=== PATIENT | male | born 1985 | race Asian ===

== ENCOUNTER 2024-06-07 14:43 | Emergency (ER) | payer OTHER, SELFPAY ==
[2024-06-07 14:56] VITALS: BP 212/122; PULSE 97; RESP 18; TEMP 36.1; O2SAT 100; BMI 34.5
--- NOTE | 2024-06-07 14:59 | ED.GENADULT ---
HPI - General Adult General Chief complaint: General Medical Stated complaint: High bp sent in from Urgent Care Time Seen by Provider: 06/07/24 15:40 Source: patient Mode of arrival: ambulatory Limitations: no limitations History of Present Illness ED Provider: RONALD CHAETHAM PA-C HPI narrative: 38 year old male with pmhx significant for HTN presents to the ED today from Urgent Care for evaluation of high blood pressure. He was evaluated by his dentist this morning for a few days of left lower dental pain. He had an exam with xrays - dentist noted concern for broken tooth. He was advised to return to the office in a few weeks for repeat imaging. He states he was placed on amoxicillin however has not picked this up from the pharmacy yet. He has been taking motrin/ tylenol at home with little relief of dental pain. States his dentist did not prescribe him anything stronger. Denies fever, chills, N/V, odynophagia, dysphagia. He presented to Urgent Care after his dental visit this morning requesting pain medication. His BP was noted to be elevated and he was advised to come to the ED for further evaluation. Reports history of HTN. He was previously treated with amlodipine however self discontinued his medication about 1 year ago as he relocated and was unable to establish care with a new provider. Denies headache, dizziness, vision changes, chest pain, palpitations, SOB. Related Data Previous Rx's ?Medication ?Instructions ?Recorded hydrochlorothiazide 25 mg tablet 25 mg PO DAILY 30 days #30 tabs 06/07/24 tramadol 50 mg tablet 50 mg PO Q8H PRN pain (scale score 06/07/24 4-6) #9 tabs Allergies Allergy/AdvReac Type Severity Reaction Status Date / Time No Known Allergies Allergy Verified 06/07/24 15:03 Review of Systems Review of Systems: Yes all other systems are reviewed and are negative [facility] Past Medical History Attestation statement: The following information was validated with the patient. Source: old records reviewed and nursing notes reviewed Social History Social History Smoked in Last 30 Days: No Use of substances other than those prescribed or required for medical reasons: No Advance Directives: No Advance Directives Information Provided: No Do you have a plan to hurt others: No Plan Physical Exam ED Vital Signs: Vital Signs - 24 hr 06/07/24 14:56 06/07/24 16:11 06/07/24 16:16 Temperature 96.9 F 99.0 F Pulse Rate 97 85 Respiratory Rate 18 15 Blood Pressure 212/122 H 211/115 H 206/119 H Pulse Oximetry 100 100 Oxygen Delivery Method Room Air Room Air Oxygen Flow Rate 06/07/24 16:23 06/07/24 16:54 Temperature 100 F 99 F Pulse Rate 85 Respiratory Rate 16 Blood Pressure 212/109 H Pulse Oximetry Oxygen Delivery Method Room Air Oxygen Flow Rate 100 BMI result Body Mass Index 34.5 hypertensive, vitals otherwise wnl General: Well appearing, in no acute distress. Skin: Warm, dry, intact. No rashes or lesions. Head: Normocephalic, atraumatic. EENT: Hearing is intact b/l. Conjunctiva clear. PERRLA. EOM intact. No papilledema. + No facial edema. Tongue and lips wnl + multiple dental caries and poor dentition. left lower molar with localized periapical swelling to the buccal ginginva. No pointing. No active bleeding/ discharge. TTP. No palpable fluctuance. + No edema to buccal mucosa + Posterior oropharynx without erythema/edema. Uvula midline. Controlling secretions and speaking in complete sentences + No submandublar, submental or cervical LAD. no anterior neck swelling. Cardiac: Chest wall symmetric. RRR Lungs: Normal respiratory effort without accessory muscle use. CTA bilaterally. Abdomen: Soft, non-tender, non-distended. No rebound tenderness or guarding. Positive BS x4. Ext: Upper and lower extremities atraumatic, without tenderness, deformity, swelling or erythema. Neuro: AOx3. NIH 0. Exam nonfocal. Normal speech. Ambulating with steady gait. Psych: Appropriate mood and affect. Responds appropriately to questions. Course Course Course Narrative: This is a rapid medical exam performed by Gabriela Wiley NP: Additional HPI, ROS, PE not included below will be deferred to primary provider. 06/07/24 14:59 Patient is a 38-year-old male presenting from urgent care for high blood pressure readings. Initially went to [facility] this morning, had some x-rays, was prescribed an antibiotic, but had ongoing pain so went to urgent care. At urgent care BP was very high, they were not comfortable prescribing any pain meds. BP in triage 212/122. Was previously on BP meds but changed providers and ran out of meds. Denies headache, blurred vision, chest pain, palpitations. Plan: EKG, labs Reevaluation(s) Reevaluation #1: CBC without leukocytosis or left shift. No anemia. H&H stable. Chemistry without acute electrolyte abnormality requiring intervention. No GELACIO. Random glucose 136. ALT mildly elevated to 46, alk phos mildly elevated to 118. Troponin WNL at 6.2. EKG showing normal sinus rhythm without acute ischemic changes or ST elevations. > patient's blood pressure noted to be 212/109. Is asymptomatic. Given he has been off of his blood pressure medication for well over a year, this is likely patient's baseline. Discussed with my attending Dr. Bansal. plan to start patient on HCTZ. first dose provided in ED. advised to monitor blood pressures at home. Provided with a list of PCP referrals. > concern for very mild dental infection. There is no evidence of abscess. I am not concerned about deep soft tissue infection. A course of amoxicillin was sent to his pharmacy this morning per his dentist. Advised him to take this as prescribed and to follow up with dentist as scheduled. Reports no relief with Tylenol/Motrin at home. Will send tramadol for breakthrough pain. Patient has remained stable throughout ED visit today. Discussed worrisome signs and symptoms and when to return to the ED. All questions answered at this time. Patient is agreeable with disposition and stable for discharge. Medications Administered Discontinued Medications Generic Name Dose Route Start Last Admin Trade Name Royer PRN Reason Stop Dose Admin Acetaminophen 975 mg 06/07/24 16:17 06/07/24 16:20 Acetaminophen 325 Mg Tablet PO 06/07/24 16:18 975 mg ONCE ONE Administration Hydrochlorothiazide 25 mg 06/07/24 15:56 06/07/24 16:11 Hydrochlorothiazide 25 Mg Tablet PO 06/07/24 15:57 25 mg ONCE ONE Administration Protocol Tramadol HCl 50 mg 06/07/24 16:07 06/07/24 16:13 Tramadol Hcl 50 Mg Tablet PO 06/07/24 16:08 50 mg ONCE ONE Administration Medical Decision Making Medical Decision Making MDM Narrative: 38 year old male with pmhx significant for HTN presents to the ED today from Urgent Care for evaluation of high blood pressure. hypertensive to 212/122. vitals are otherwise wnl. please refer to exam section for findings. Differential diagnosis includes anemia, electrolyte abnormality, hypertension, hypertensive crisis, hypertensive urgency vs emergency, LINA, pheo Concern for dental pain, dental infection. Unlikely deep soft tissue infection/ abscess. Plan for basic labs, ekg, re-evaluation. Differential Diagnosis Differential Diagnoses: The differential diagnosis associated with the presentation includes as above. Admission/Observation not indicated. Lab Data MDM Lab Attestation statement: I reviewed the patient's lab results. as above. 06/07/24 15:13 06/07/24 15:13 Labs: Lab Results 06/07/24 Range/Units 15:13 WBC 9.5 (4.8-10.8) X10*3/uL RBC 4.73 (4.60-5.80) X10*6/uL Hgb 14.5 (14.0-18.0) g/dl Hct 40.2 L (42.0-52.0) % MCV 85.0 (80.0-98.0) fL MCH 30.7 (27.0-33.0) pg MCHC 36.1 H (31.0-36.0) g/dl RDW 13.9 (11.0-16.0) % Plt Count 290 (160-400) X10*3/uL MPV 10.9 (9.4-12.4) fL Immature Gran % (Auto) 0.2 (0.0-0.4) % Neut % (Auto) 38.2 L (45-73) % Lymph % (Auto) 49.8 H (20-40) % Mason % (Auto) 9.9 (2-11) % Eos % (Auto) 1.4 (0-4) % Baso % (Auto) 0.5 (0-2) % Lymph # (Auto) 4.7 (1.2-4.9) X10*3/uL Mason # (Auto) 0.9 (0.1-1.2) X10*3/uL Eos # (Auto) 0.1 (0.0-0.4) X10*3/uL Baso # (Auto) 0.1 (0.0-0.2) X10*3/uL Abs Immat Gran (auto) 0.02 (0.00-0.03) X10*3/uL Absolute Neuts (auto) 3.6 (2.0-8.3) x10*3/uL Absolute Nucleated RBC 0.000 (0.0-0.012) X10*3/uL Nucleated RBC % (auto) 0.0 (0.0-0.2) /100WBC Sodium 141 (135-145) mmol/L Potassium 3.7 (3.3-5.1) mmol/L Chloride 105 (96-108) mmol/L Carbon Dioxide 24 (22-29) mmol/L Anion Gap 16 (12-20) BUN 12 (9-16) mg/dL Creatinine 0.77 (0.5-1.4) mg/dL Estim Creat Clear Calc 148.3 Estimated GFR > 60 Random Glucose 136 H (60-115) mg/dL Calcium 9.3 (8.4-10.2) mg/dL Total Bilirubin 0.7 (0.0-1.0) mg/dL AST 31 (5-37) U/L ALT 46 H (0-40) U/L Alkaline Phosphatase 118 H (39-117) U/L Troponin I High Sens 6.2 (<3.5-35.0) ng/L Total Protein 7.7 (6.5-8.0) g/dL Albumin 4.5 (3.5-5.0) g/dL Independent Interpretation I performed an independent interpretation of an: EKG Interpretation: EKG showing normal sinus rhythm, rate of 84 beats per minute, QT 384, QTC 453, no acute ischemic changes or st elevations Independent Historian Clinical information obtained from an independent historian. History obtained from or confirmed by: Spouse Prescription Management I considered prescription management with: Pain Medication, Antibiotic and Other (antihypertensive) Chronic Conditions Patient?s care impacted by: Hypertension Social Determinants Patient?s care significantly limited by Social Determinants of Health including: Other Social Determinant of Health Critical Care Time Critical Care Time Critical Care Time: No Discharge Plan Discharge Clinical Impression: Hypertension, Toothache Patient Disposition: Home, Self-Care Instructions: DASH Eating Plan (ED), Hypertension (ED), Toothache (ED) Additional Instructions: You were evaluated in the ED today for high blood pressure. Your work up today is unremarkable. Your blood pressure is elevated however you have been off of your medications for over a year now and this is likely your baseline blood pressure. You are asymptomatic. I am starting you on a blood pressure medication called hydrochlorothiazide (HCTZ). Take this daily, as prescribed. This will need to be refilled in 30 days. Monitor your BP every 2-3 days at home. Keep a log to show your doctor. See attached dietary changes. Continue the amoxicillin that was prescribed to you by your dentist today. I recommend you take 600mg ibuprofen every 6 hours or Tylenol 650mg every 6 hours as needed for pain. If needed, you can alternate these medications so that you take one medication every 3 hours. For example, at noon take ibuprofen, then at 3pm take Tylenol, then at 6pm take ibuprofen. I am sending Tramadol, a controlled pain medication, to your pharmacy fo you to take as needed for breakthrough pain. I have provided you with a list of primary care providers to call and establish care. You should also check online with your insurance company. Return with new or worsening symptoms including headache, dizziness, vision changes, chest pain, palpitations. In the case of an emergency call 911. Prescriptions: New tramadol 50 mg tablet 50 mg PO Q8H PRN (Reason: pain (scale score 4-6)) Qty: 9 0RF hydrochlorothiazide 25 mg tablet 25 mg PO DAILY 30 Days Qty: 30 0RF Referrals: [facility] Family Medicine [Provider Group] [facility] Primary CareCynthia [Provider Group] [facility] Primary Care, Radha [Provider Group] Interventions: ED Discharge Assessment Last Done: 06/07/24 16:54 Discharge Date/Time: 06/07/24 17:07 Print Language: Estonian
--- NOTE | 2024-06-07 15:06 | ECG_ITS ---
Test Reason : hypertension Blood Pressure : */* mmHG Vent. Rate : 84 BPM Atrial Rate : 84 BPM P-R Int : 178 ms QRS Dur : 90 ms QT Int : 384 ms P-R-T Axes : 43 26 35 degrees QTcB Int : 453 ms Normal sinus rhythm Normal ECG No previous ECGs available Referred By: Gisele Wiley Electronically Signed By: Henrry Lincoln
[2024-06-07 15:17] LABS: MANUAL DIFF FLAG NO
[2024-06-07 15:19] LABS: Basophils Absolute Auto 0.1 X10*3/uL (0.0-0.2); Basophils Percent Auto 0.5 % (0-2); Eosinophils Absolute Auto 0.1 X10*3/uL (0.0-0.4); Eosinophils Percent Auto 1.4 % (0-4); Hematocrit 40.2 % (42.0-52.0); Hemoglobin 14.5 g/dl (14.0-18.0); Imm Gran Abs Auto 0.02 X10*3/uL (0.00-0.03); Imm Gran Pct Auto 0.2 % (0.0-0.4); Lymphocytes Absolute Auto 4.7 X10*3/uL (1.2-4.9); Lymphocytes Percent Auto 49.8 % (20-40); Mean Corpuscular HGB Conc 36.1 g/dl (31.0-36.0); Mean Corpuscular Hemoglobin 30.7 pg (27.0-33.0); Mean Platelet Volume 10.9 fL (9.4-12.4); Monocytes Absolute Auto 0.9 X10*3/uL (0.1-1.2); Monocytes Percent Auto 9.9 % (2-11); Neutrophils Absolute Auto 3.6 x10*3/uL (2.0-8.3); Neutrophils Percent Auto 38.2 % (45-73); Platelet Count 290 X10*3/uL (160-400); Red Blood Count 4.73 X10*6/uL (4.60-5.80); Red Cell Distribution Width 13.9 % (11.0-16.0); White Blood Count 9.5 X10*3/uL (4.8-10.8)
[2024-06-07 15:42] LABS: Troponin-I High Sensitivity 6.2 ng/L (<3.5-35.0)
[2024-06-07 15:43] LABS: Alanine Aminotransferase 46 U/L (0-40); Albumin Level 4.5 g/dL (3.5-5.0); Anion Gap 16 (12-20); Aspartate Amino Transferase 31 U/L (5-37); Bilirubin Total 0.7 mg/dL (0.0-1.0); Blood Urea Nitrogen 12 mg/dL (9-16); Calcium 9.3 mg/dL (8.4-10.2); Carbon Dioxide 24 mmol/L (22-29); Chloride 105 mmol/L (96-108); Creatinine Clr Calc Pharmacy 148.3; Estimated Glomerular Filt Rate > 60; Glucose Random 136 mg/dL (60-115); Potassium 3.7 mmol/L (3.3-5.1); Sodium 141 mmol/L (135-145); Total Protein 7.7 g/dL (6.5-8.0)
[2024-06-07 16:11] VITALS: BP 211/115
[2024-06-07] MEDS: hydroCHLOROthiazide 25 MG TABLET PO (16:11)
[2024-06-07] MEDS: traMADoL HCL 50 MG TABLET PO (16:13)
[2024-06-07 16:16] VITALS: BP 206/119; PULSE 85; RESP 15; TEMP 37.2; O2SAT 100
[2024-06-07] MEDS: Acetaminophen 325 MG TABLET 975 MG PO (16:20)
[2024-06-07 16:23] VITALS: TEMP 37.7
[2024-06-07 16:32] LABS: Alkaline Phosphatase 118 U/L (39-117)
--- NOTE | 2024-06-07 16:32 | PC.NURSE ---
Pt c/o feeling cold; pt visibly shivering; PO temp 100; COLLATERAL SPECIALIST made aware and pt medicated per orders
--- OUTSIDE RECORDS SUMMARY | 2024-06-07 16:36 | XMS_ITS | Encounter Summary ---
Author Organization [facility] Address [address] [place] [address] Care Team Providers Care Medical Assistant Supervisor Name Role Phone Theo Rowley LAND LEVELER Primary Care Provider Tigist Broussard TAX COMPLIANCE AGENT Unavailable [phone] Saúl Ricks MD Unavailable [phone] Analia Swenson LPC Unavailable [phone] Therese Delaney APRN Unavailable [phone] Rosaura Parikh TAX COMPLIANCE AGENT Unavailable [phone] Enriqueta Clark DO Unavailable [phone] Saúl Bower MD Unavailable [phone] Rocky Randall MD Unavailable [phone] Linda Kumar RN Unavailable [phone] Rosaura Parikh TAX COMPLIANCE AGENT Unavailable [phone] Manoj Ash LAND LEVELER Unavailable [phone] Pcp, No Primary Care Provider UnavailAlexander Mercado MD Unavailable [phone] Encounter Details Date Type Department Care Team (Late st Contact Info) Description 07/06/2021 Telephone [facility] [address] [place] [phone] Adelaide Martinez MA [address] [place] [phone] Social History Tobacco Use Types Packs/Day Years Used Date Smoking Tobacco: Every Day Smokeless Tobacco: Never Alcohol Use Standard Drinks/Week Comments Yes 9 (1 standard drink = 0.6 oz pur e alcohol) social PHQ-2 Answer Date Recorded PHQ-2 Total Score 6 12/08/2020 Sex and Gender Information Value Date Recorded Sex Assigned at Male 03/24/2023 9:29 PM EST Gender Identity Male 08/18/2020 2:53 PM EDT Sexual Orientation Heterosexual (straight) 08/18 2:53 PM EDT documented as of this encounter Miscellaneous Notes * Telephone Encounter - Adelaide Martinez MA - 07/13/2021 2:57 PM EDT Called patient he scheduled for 08/23 at [facility] with ricky * Telephone Encounter - Paula Ramsey APRN - 07/06/2021 11:49 AM EDT Records reviewed. Patient was scheduled initially to see Dr Zelaya 06/15/2021 and did not show for appointment. Patient was seen by [facility] 01/2021 with labs ordered (that do not appear to have been completed). He needs to see a sql server developer, first available. Thanks * Telephone Encounter - Adelaide Martinez MA - 07/06/2021 8:47 AM EDT New patient records received. Transcribe order completed. Care Team added. Records are available inEpic. please advise documented in this encounter Plan of Treatment Not on file documented as of this encounter Visit Diagnoses Not on filedocumented in this encounter Care Teams Medical Assistant Supervisor Relationship Specialty Start Date End Date Theo Rowley APRN PCP - General Family Medicine 08/12/20 09/27/22 Enriqueta Clark DO [address] [place] [address] PCP - [employer] Commercial Attributed 09/26/20 06/25/22 Pcp, No PCP - General General Medicine 09/28/22 Tigist Broussard [facility] Test Man Clinical Social Work 09/28/20 Saúl Ricks MD [address] [place] [address] Psychiatry, General 09/29/20 Analia Swenson LPC [address] [place] [address] Test Man Clinical Social Work 10/05/20 Therese Delaney APRN [address] [place] [address] Nurse Practitioner Psychiatry, General 11/17/20 Rosaura Parikh LMFT [address] [place] [address] Clinician Social Work 12/13/20 10/11/21 Saúl Bower MD [address] [place] [address] Psychiatry, General 02/03/21 Rocky Randall MD [address] [place] [address] Farm[employer] Gastroenterology 02/14/21 Linda Kumar, RN [address] [place] [address] Registered Nurse 07/06/21 Rosaura Parikh LMFT [address] [place] [address] Primary Clinician Social Work 10/12/21 Manoj Ash APRN [address] [place] [address] Nurse Practitioner Psychiatry, General 01/16/22 Alexander Wright MD [address] [place] [address] Physician Psychiatry, General 10/18/22 documented as of this encounter
--- OUTSIDE RECORDS SUMMARY | 2024-06-07 16:36 | XMS_ITS | Encounter Summary ---
Author Organization [facility] Address [address] [place] [address] Care Team Providers Care Cook Chili Name Role Phone Theo Rowley BIAS CUTTING MACHINE OPERATOR VERTICAL Primary Care Provider Tigist Broussard PIG MACHINE CRANE OPERATOR Unavailable [phone] Saúl Ricks MD Unavailable [phone] Analia Swenson LPC Unavailable [phone] Therese Delaney APRN Unavailable [phone] Rosaura Parikh PIG MACHINE CRANE OPERATOR Unavailable Enriqueta Clark DO Unavailable [phone] Saúl Bower MD Unavailable Rocky Randall MD Unavailable [phone] Linda Kumar RN Unavailable [phone] Rosaura Parikh PIG MACHINE CRANE OPERATOR Unavailable Manoj Ahs BIAS CUTTING MACHINE OPERATOR VERTICAL Unavailable [phone] Pcp, No Primary Care Provider UnavailAlexander Mercado MD Unavailable [phone] Reason for Visit * Reason Onset Date Comments Medication Refill 09/28/2021 Encounter Details Date Type Department Care Team (Late st Contact Info) Description 09/28/[address] [phone] Saúl Arias MD [address] [place] [address] Essential hypertension; Mixed hyperlipidemia Social History Tobacco Use Types Packs/Day Years [...] Orientation Heterosexual (straight) 08/18 2:53 PM EDT COVID-19 Exposure Response Date Recorded In the last 10 days, have yo u been in contact with someone who was confirmed or suspected to have Coronavirus/COVID-19? Unable to assess 09/15/2021 6:48 AM EDT documented as of this encounter Miscellaneous Notes * Telephone Encounter - Karolyn Moyer LPN - 11/08/2021 2:45 PM EDT OLD DUPLICATE REQUEST, CLOSING AN OPEN ENCOUNTER * Telephone Encounter - Viry Stanton MA - 10/03/2021 8:26 AM EDT LM for pt to call back * Telephone Encounter - Yoselyn Guidry APRN - 09/28/2021 6:12 PM EDT Patient needs appt. documented in this encounter Plan of Treatment Not on file documented as of this encounter Visit Diagnoses Diagnosis Essential hypertension Unspecified essential hypertension Mixed hyperlipidemia documented in this encounter Care Teams Cook Chili Relationship Specialty Start Date End Date Theo Rowley APRN PCP - General Family Medicine 08/12/20 09/27/22 Enriqueta Clark DO [address] [place] [address] PCP - [employer] Commercial Attributed 09/26/20 06/25/22 Pcp, No PCP - General General Medicine 09/28/22 Tigist Broussard [facility] Search Optimization Analyst Clinical Social Work 09/28/20 Saúl Ricks MD [address] [place] [address] Psychiatry, General 09/29/20 Analia Swenson LPC [address] [place] [address] Search Optimization Analyst Clinical Social Work 10/05/20 Therese Delaney APRN [address] [place] [address] Nurse Practitioner Psychiatry, General 11/17/20 Rosaura Praikh LMFT [address] [place] [address] Clinician Social Work 12/13/20 10/11/21 Saúl Bower MD [address] [place] [address] Psychiatry, General 02/03/21 Rocky Randall MD [address] [place] [address] Polystyrene Molding Machine Tender Gastroenterology 02/14/21 Linda Kumar, RN [address] [place] [address] Registered Nurse 07/06/21 Rosaura Parikh LMFT [address] [place] [address] Primary Clinician Social Work 10/12/21 Manoj Ash APRN [address] [place] [address] Nurse Practitioner Psychiatry, General 01/16/22 Alexander Wright MD [address] [place] [address] Physician Psychiatry, General 10/18/22 documented as of this encounter
--- OUTSIDE RECORDS SUMMARY | 2024-06-07 16:36 | XMS_ITS | Encounter Summary ---
Author Organization [facility] Address [address] [place] [address] Care Team Providers Care Trick Rodeo Rider Name Role Phone Jake Rowleyazeemkulwinder APPLICATIONS PROGRAMMER Primary Care Provider Tigist Broussard EXHIBIT ELECTRICIAN Unavailable Saúl Ricks MD Unavailable Analia Swenson LPC Unavailable [phone] Therese Delaney APPLICATIONS PROGRAMMER Unavailable [phone] Enriqueta Clark DO Unavailable [phone] Saúl Bower MD Unavailable Rocky Randall MD Unavailable Linda Kumar RN Unavailable Rosaura Parikh EXHIBIT ELECTRICIAN Unavailable Manoj Ash APPLICATIONS PROGRAMMER Unavailable Pcp, No Primary Care Provider UnavailAlexander Mercado MD Unavailable [phone] Reason for Visit * Reason Comments Medication Refill Encounter Details Date Type Department Care Team (Late st Contact Info) Description 10/18/[address] [phone] Saúl Arias MD [address] [place] [address] Essential hypertension; Mixed hyperlipidemia Social History Tobacco [...] was confirmed or suspected to have Coronavirus/COVID-19? No / Unsure 10/11/2021 3:08 PM EDT documented as of this encounter Plan of Treatment Not on file documented as of this encounter Goals Goal Patient Goal Type Associated Problems Recent Progress Patient-Stated? Author Learn refusal skills for use when tempted into addictive behavior. Care Plan FARM-Chemical Dependence - Relapse Prevention No Rosaura Parikh LMFT [phone] Renew commitment to abstain from the use of mood-altering drugs. Care Plan FARM-Chemical Dependence - Relapse Prevention No Rosaura Parikh LMFT Patient-Stated Goal: I am here to work on my depression and cut down on my drinking, as much as possible. Care Plan FARM-Chemical Dependence - Relapse Prevention No Rosaura Parikh LMFT [phone] Take prescribed medications responsibly at times ordered by physician. Care Plan FARM-Chemical Dependence - Relapse Prevention No Rosaura Parikh LMFT MARS GOAL 6 - Feel accepted as who I am Care Plan FARM-Chemical Dependence - Relapse Prevention No Rosaura Parikh LMFT Note: Pt. will report at least a 1 point increase on the MARS-12 outcome measure item (#6) I feel accepted as who I am on the next administration of the measure. Pt. will participate in self-esteem oriented activities in future appointments. The client rated #6 1 on 10/11/2021. Frequency IT Sessions every 2 week, MM PRN, and Teleheatlh PRN Duration 30-Day Treatment Plan Modality IT, MM, and Telehealth Alleviate depressive symptoms and return to previous level of effective functioning. Care Plan GT-Depression No Rosaura Parikh LMFT [phone] Renew commitment to abstain from the use of mood-altering drugs. Care Plan GT-Depression No Rosaura Parikh LMFT [phone] Take prescribed medications responsibly at times ordered by physician. Care Plan GT-Depression No Rosaura Parikh LMFT documented as of this encounter Visit Diagnoses Diagnosis Essential hypertension Unspecified essential hypertension Mixed hyperlipidemia documented in this encounter Additional Health Concerns Active Problems Noted Date Diagnosed Date FARM-Chemical Dependence - Relapse Prevention GT-Depression 10/11/2021 documented as of this encounter Care Teams Trick Rodeo Rider Relationship Specialty Start Date End Date Theo Rowley APRN PCP - General Family Medicine 08/12/20 09/27/22 Enriqueta Clark DO [address] [place] [address] PCP - [employer] Commercial Attributed 09/26/20 06/25/22 Pcp, No PCP - General General Medicine 09/28/22 Tigist Broussard LMFT Adobe Developer Clinical Social Work 09/28/20 Saúl Ricks MD [address] [place] [address] Psychiatry, General 09/29/20 Analia Swenson LPC [address] [place] [address] Adobe Developer Clinical Social Work 10/05/20 Therese Delaney APRN [address] [place] [address] Nurse Practitioner Psychiatry, General 11/17/20 Saúl Bower MD [address] [place] [address] Psychiatry, General 02/03/21 Rocky Randall MD [address] [place] [address] Bond Underwriter Gastroenterology 02/14/21 Linda Kumar, RN [address] [place] [address] Registered Nurse 07/06/21 Rosaura Parikh LMFT [address] [place] [address] Primary Clinician Social Work 10/12/21 Manoj Ash, YOSI [address] [place] [address] Nurse Practitioner Psychiatry, General 01/16/22 Alexander Wright MD [address] [place] [address] Physician Psychiatry, General 10/18/22 documented as of this encounter
--- OUTSIDE RECORDS SUMMARY | 2024-06-07 16:36 | XMS_ITS | Encounter Summary ---
Author Organization [facility] Address [address] [place] [address] Care Team Providers Care Metal Sprayer Name Role Phone Theo Rowley MUD TANK OPERATOR Primary Care Provider Tigist Broussard ASP NET PROGRAMMER Unavailable Saúl Ricks MD Unavailable [phone] Analia Swenson LPC Unavailable [phone] Therese Delaney APRN Unavailable [phone] Rosaura Parikh ASP NET PROGRAMMER Unavailable Enriqueta Clark DO Unavailable [phone] Saúl Bower MD Unavailable Rocky Randall MD Unavailable [phone] Linda Kumar RN Unavailable [phone] Rosaura Parikh ASP NET PROGRAMMER Unavailable Manoj Ash MUD TANK OPERATOR Unavailable [phone] Pcp, No Primary Care Provider UnavailAlexander Mercado MD Unavailable [phone] Reason for Visit * Reason Onset Date Comments Medication Refill 06/08/2021 Encounter Details Date Type Department Care Team (Late st Contact Info) Description 06/08/2021 Refill [facility] [address] [address] Krysta Galan, MUD TANK OPERATOR [address] [address] Gastroesophageal reflux disease, unspecified whether esophagitis present Social History Tobacco Use Types Packs/Day Years [...] as of this encounter Visit Diagnoses Diagnosis Gastroesophageal reflux disease, unspecified whether esophagitis present documented in this encounter Care Teams Metal Sprayer Relationship Specialty Start Date End Date Theo Rowley APRN PCP - General Family Medicine 08/12/20 09/27/22 Enriqueta Clark DO [address] [place] [address] PCP - [employer] Commercial Attributed 09/26/20 06/25/22 Pcp, No PCP - General General Medicine 09/28/22 Tigist Broussard LMFT Sale Professional Digital Marketing Clinical Social Work 09/28/20 Saúl Ricks MD [address] [place], [place] [address] Psychiatry, General 09/29/20 Analia Swenson LPC [address] [place] [address] Sale Professional Digital Marketing Clinical Social Work 10/05/20 Therese Delaney APRN [address] [facility], [place] [address] Nurse Practitioner Psychiatry, General 11/17/20 Rosaura Parikh LMFT [address] [facility], [place] [address] Clinician Social Work 12/13/20 10/11/21 Saúl Bower MD 73 [facility], [place] [address] Psychiatry, General 02/03/21 Rocky Randall MD [address] [place] [address] Duplicator Punch Set Up Operator Gastroenterology 02/14/21 Linda Kumar, RN [address] [place] [address] Registered Nurse 07/06/21 Rosaura Parikh LMFT [address] [place] [address], [place] [address] Primary Clinician Social Work 10/12/21 Manoj Ash, YOSI [address] [place] [address], [place] [address] Nurse Practitioner Psychiatry, General 01/16/22 Alexander Wright MD [address] [place] [address] Physician Psychiatry, General 10/18/22 documented as of this encounter
--- OUTSIDE RECORDS SUMMARY | 2024-06-07 16:36 | XMS_ITS ---
[facility] Name [facility] History of Medication Use Medication Directions Dispensed Refills Start Date End Date Stat FLUoxetine (PROzac) 40 MG capsule Take 2 capsules (80 mg total) by mouth daily. 10/18/2021 active amLODIPine (NORVASC) 10 MG tablet Take 1 tablet (10 mg total) by mouth daily. 12/05/2021 03/06/2022 active atorvastatin (LIPITOR) 40 MG tablet Take 1 tablet (40 mg total) by mouth daily. 12/05/2021 03/06/2022 active Problems Problem Status Onset Date Problem Type Date of Resoluti on Source Nausea and vomiting active 2021-02-16 [facility] Alcohol abuse, daily use active 2020-09-28 [facility] Current moderate episode of major depressive disorder active 2021-10-11 ProblemAct [facility] Acid reflux active 2020-10-06 ProblemAct [facility] Liver disease active 2021-01-27 ProblemAct [facility] T Depressive disorder active 2020-09-15 ProblemAct [facility] Palpitations active 2020-11-05 [facility] Anxiety active 2020-09-15 [facility] Adjustment disorder with mixed anxiety and depressed mood active 2021-10-11 ProblemAct [facility] Abnormal liver function test active 2020-12-09 ProblemAct [facility] Bilateral sciatica active 2021-01-27 ProblemAct [facility] Essential hypertension active 2020-09-15 ProblemAct [facility] Mixed hyperlipidemia active 2020-09-15 ProblemAct [facility] Encounters Encounter Type Encounter Reason Primary Diagnosis Location Date Ambulatory Gastro-esophagea l reflux disease without esophagitis [facility] 12/05/2021 Ambulatory Liver disease, unspecified [facility] 04/27/2021 Ambulatory Liver disease, unspecified [facility] 02/16/2021 Ambulatory Liver disease, unspecified [facility] 01/26/2021 Ambulatory Radial styloid tenosynovitis (de quervain) [facility] 01/13/2021 Ambulatory Liver disease, unspecified [facility] 12/08/2020 Care Team Organization Name Specialty Phone Email Start Date End Da te [facility] 12/28/2022 024 [facility] NO PCP Primary Care 12/06/2022 12/06/2022 [facility] 11/17/2022 024 [facility] Theo Rowley Primary Care 12/05/2021 [facility] THEO ROWLEY Primary Care 12/08/2020 022
--- OUTSIDE RECORDS SUMMARY | 2024-06-07 16:36 | XMS_ITS | Encounter Summary ---
Author Organization [facility] Address [address] [place] [address] Care Team Providers Care Account Executive Trainee Name Role Phone Jessica Rowleykulwinder YOSI Primary Care Provider Chase Vences KNITTING TESTER Unavailable [phone] Tigist Broussard COMMERCIAL SALES CONSULTANT Unavailable [phone] Saúl Ricks MD Unavailable [phone] Analia Swenson HYDROGRAPHIC SURVEYOR Unavailable [phone] Therese Delaney MOUNTER BRASS WIND INSTRUMENTS Unavailable [phone] Asia Rahman KNITTING TESTER Unavailable [phone] Rosaura Parikh COMMERCIAL SALES CONSULTANT Unavailable Enriqueta Clark DO Unavailable [phone] Saúl Bower MD Unavailable [phone] Rocky Randall MD Unavailable [phone] Linda Kumar RN Unavailable [phone] Rosaura Parikh COMMERCIAL SALES CONSULTANT Unavailable Manoj Ash MOUNTER BRASS WIND INSTRUMENTS Unavailable [phone] Pcp, No Primary Care Provider UnavailAlexadner Mercado MD Unavailable [phone] Reason for Visit * Reason Onset Date Comments Medication Refill 05/31/2021 Encounter Details Date Type Department Care Team (Late st Contact Info) Description 05/31/[address] [phone] [place] [address] Mixed hyperlipidemia; Essential hypertension Social History Tobacco Use Types Packs/Day Years [...] as of this encounter Visit Diagnoses Diagnosis Mixed hyperlipidemia Essential hypertension Unspecified essential hypertension documented in this encounter Care Teams Account Executive Trainee Relationship Specialty Start Date End Date Theo Rowley APRN PCP - General Family Medicine 08/12/20 09/27/22 Enriqueta Clark DO [address] [place] [address] PCP - [employer] Commercial Attributed 09/26/20 06/25/22 Pcp, No PCP - General General Medicine 09/28/22 Chase Vences LCSW Gyroscope Technician Clinical Social Work 08/18/20 05/31/21 Tigist Broussard LMFT Gyroscope Technician Clinical Social Work 09/28/20 Saúl Ricks MD [address] [place] [address] Psychiatry, General 09/29/20 Analia Swenson LPC [address] [place] [address] Gyroscope Technician Clinical Social Work 10/05/20 Therese Delaney APRN [address] [place] [address] Nurse Practitioner Psychiatry, General 11/17/20 Asia Rahman LCSW [address] [place] [address] Gyroscope Technician Clinical Social Work 11/26/20 05/31/21 Rosaura Parikh LMFT [address] [place] [address] Clinician Social Work 12/13/20 10/11/21 Saúl Bower MD [address] [place] [address] Psychiatry, General 02/03/21 Rocky Randall MD [address] [place] [address] Electric Motor Assembler And Tester Gastroenterology 02/14/21 Linda Kumar, RN [address] [place] [address] Registered Nurse 07/06/21 Rosaura Parikh LMFT [address] [place] [address] Primary Clinician Social Work 10/12/21 Manoj Ash APRN [address] [place] [address] Nurse Practitioner Psychiatry, General 01/16/22 Alexander Wright MD [address] [place] [address] Physician Psychiatry, General 10/18/22 documented as of this encounter
--- OUTSIDE RECORDS SUMMARY | 2024-06-07 16:36 | XMS_ITS | Encounter Summary ---
Author Organization [facility] Address [address] [place] [address] Care Team Providers Care Appointment Coordinator Name Role Phone Theo Rowley SUPERVISOR SANDING Primary Care Provider Tigist Broussard CAPACITY PLANNING ANALYST Unavailable [phone] Saúl Ricks MD Unavailable [phone] Analia Swenson LPC Unavailable [phone] Therese Delaney APRN Unavailable [phone] Rosaura Parikh CAPACITY PLANNING ANALYST Unavailable [phone] Enriqueta Clark DO Unavailable [phone] Saúl Bower MD Unavailable [phone] Rocky Randall MD Unavailable [phone] Linda Kumar RN Unavailable [phone] Rosaura Parikh CAPACITY PLANNING ANALYST Unavailable [phone] Manoj Ash SUPERVISOR SANDING Unavailable [phone] Pcp, No Primary Care Provider UnavailAlexander Mercado MD Unavailable [phone] Encounter Details Date Type Department Care Team (Late st Contact Info) Description 08/23/2021 Telephone [facility] [address] [facility] [address] [place] [address] Cynthia Johnston MA 85 [facility] [address] [place] [address] Social History Tobacco Use Types Packs/Day Years [...] suspected to have Coronavirus/COVID-19? No / Unsure 08/25/2021 6:22 AM EDT documented as of this encounter Miscellaneous Notes * Telephone Encounter - Magalie Shaw MA - 08/31/2021 11:24 AM EDT Called patient. Left message 2x to call us back. Calling to help him reschedule his cancelled appointment with dr Garcia on 08/23/2021. Will send letter * Telephone Encounter - Magalie Shaw MA - 08/25/2021 9:57 AM EDT Called patient. Left message 1x to call us back. Calling to help him rescheduled his cancelled 08/23/[address] garcia * Telephone Encounter - Cynthia Johnston MA - 08/23/2021 1:44 PM EDT Patient left message cancelling his appointment today 08/23/2021 due to work and wants to reschedule. Cancelled in [facility] documented in this encounter Plan of Treatment Not on file documented as of this encounter Visit Diagnoses Not on filedocumented in this encounter Care Teams Appointment Coordinator Relationship Specialty Start Date End Date Theo RowleyYOSI PCP - General Family Medicine 08/12/20 09/27/22 Enriqueta Clark DO [address] [place] [address] PCP - [employer] Commercial Attributed 09/26/20 06/25/22 Pcp, No PCP - General General Medicine 09/28/22 Tigist Broussard LMFT Personal Support Worker Clinical Social Work 09/28/20 Saúl Ricks MD [address] [place] [address] Psychiatry, General 09/29/20 Analia Swenson LPC [address] [place] [address] Personal Support Worker Clinical Social Work 10/05/20 Therese Delaney APRN [address] [place] [address] Nurse Practitioner Psychiatry, General 11/17/20 Rosaura Parikh LMFT [address] [place] [address] Clinician Social Work 12/13/20 10/11/21 Saúl Bower MD [address] [place] [address] Psychiatry, General 02/03/21 Rocky Randall MD [address] [place] [address] Telephone Sex Worker Gastroenterology 02/14/21 Linda Kumar RN [address] [place] [address] Registered Nurse 07/06/21 Rosaura Parikh LMFT [address] [place] [address] Primary Clinician Social Work 10/12/21 Manoj Ash APRN [address] [place], [place] [address] Nurse Practitioner Psychiatry, General 01/16/22 Alexander Wright MD [address] [place] [address] Physician Psychiatry, General 10/18/22 documented as of this encounter
--- OUTSIDE RECORDS SUMMARY | 2024-06-07 16:36 | XMS_ITS | Encounter Summary ---
Author Organization [facility] [place] [facility] Address [address] [place] [address] Care Team Providers Care It Applications Analyst Name Role Phone AlexJake huaazeemkulwinder HOST/HOSTESS RESTAURANT Primary Care Provider Saúl Gar MD Unavailable [phone] Chase Vences NURSERY HELPER Unavailable [phone] Tigist Broussard SWITCHBOARD OPERATOR SUPERVISOR Unavailable Saúl Ricks MD Unavailable [phone] Analia Swenson TAPING FOREMAN Unavailable [phone] Therese Delaney HOST/HOSTESS RESTAURANT Unavailable [phone] Asia Rahman NURSERY HELPER Unavailable [phone] Rosaura Parikh SWITCHBOARD OPERATOR SUPERVISOR Unavailable Enriqueta Clark DO Unavailable Saúl Bower MD Unavailable Rocky Randall MD Unavailable Linda Kumar RN Unavailable [phone] Rosaura Parikh SWITCHBOARD OPERATOR SUPERVISOR Unavailable Manoj Ash HOST/HOSTESS RESTAURANT Unavailable [phone] Pcp, No Primary Care Provider UnavailAlexander Mercado MD Unavailable [phone] Encounter Details Date Type Department Care Team (Late st Contact Info) Description 12/09/[address] [facility] PRIMARY CARE SCAN Primary Care, Scan Social History Tobacco Use Types Packs/Day Years Used Date Smoking Tobacco: Every Day Smokeless Tobacco: Never Alcohol Use Standard Drinks/Week Comments Yes 9 (1 standard drink = 0.6 oz pur e alcohol) PHQ-2 Answer Date Recorded PHQ-2 Total Score 6 12/08/2020 Sex and Gender Information Value Date Recorded Sex Assigned at Male 03/24/2023 9:29 PM EST Gender Identity Male 08/18/2020 2:53 PM EDT Sexual Orientation Heterosexual (straight) 08/18 2:53 PM EDT COVID-19 Exposure Response Date Recorded In the last month, have you been in contact with someone who was confirmed or suspected to have Coronavirus / COVID-19? No / Unsure 12/08/2020 2:56 PM EDT documented as of this encounter Plan of Treatment Not on file documented as of this encounter Visit Diagnoses Not on filedocumented in this encounter Care Teams It Applications Analyst Relationship Specialty Start Date End Date Theo Rowley APRN PCP - General Family Medicine 08/12/20 09/27/22 Enriqueta Clark DO [address] [place] [address] PCP - C[employer] Commercial Attributed 09/26/20 06/25/22 Pcp, No PCP - General General Medicine 09/28/22 Saúl Gar MD [address] [address] Internal Medicine 08/11/20 05/29/21 Chase Vences LCSW [address] [address] Potato Chip Maker Clinical Social Work 08/18/20 05/31/21 Tigist Broussard LMFT [address] [place] [address] Potato Chip Maker Clinical Social Work 09/28/20 Saúl Ricks MD [address] [place] [address] Psychiatry, General 09/29/20 Analia Swenson LPC [address] [place] [address] Potato Chip Maker Clinical Social Work 10/05/20 Therese Delaney APRN [address] [place] [address] Nurse Practitioner Psychiatry, General 11/17/20 Asia Rahman LCSW [address] [place] [address] Potato Chip Maker Clinical Social Work 11/26/20 05/31/21 Rosaura Parikh LMFT [address] [place] [address] Clinician Social Work 12/13/20 10/11/21 Saúl Bower MD [address] [place] [address] Psychiatry, General 02/03/21 Rocky Randall MD [address] [place] [address] Oil Refinery Operator Gastroenterology 02/14/21 Linda Kumar, RN [address] [place] [address] Registered Nurse 07/06/21 Rosaura Parikh LMFT [address] [place] [address] Primary Clinician Social Work 10/12/21 Manoj Ash APRN [address] [place] [address] Nurse Practitioner Psychiatry, General 01/16/22 Alexander Wright MD [address] [place] [address] Physician Psychiatry, General 10/18/22 documented as of this encounter
--- OUTSIDE RECORDS SUMMARY | 2024-06-07 16:36 | XMS_ITS | Clinical Summary ---
Author Organization [facility] Address [address] [place] [address] Care Team Providers Care Forming Acid Dumper Name Role Phone KofiJose A verduzcochristina Crawford FUR STRETCHER Unavailable Saúl Ricks MD Unavailable [phone] Analia Swenson LPC Unavailable [phone] Therese Delaney TOWBOAT ENGINEER Unavailable [phone] Saúl Bower MD Unavailable Rocky Randall MD Unavailable Linda Kumar RN Unavailable [phone] Rosaura Parikh FUR STRETCHER Unavailable Manoj Ash TOWBOAT ENGINEER Unavailable Pcp, No Primary Care Provider UnavailAlexander Mercado MD Unavailable [phone] Allergies No known active allergies Medications Medication Sig Dispensed Refills Start Date End Date Status PANTOprazole (PROTONIX) 20 MG tabletIndications:Gas troesophageal reflux disease, unspecified whether esophagitis present Take 2 tablets (40 mg total) by mouth every morning before breakfast. 60 tablet 1 01/17/2022 Active atorvastatin (LIPITOR) 40 MG tabletIndications:Mix ed hyperlipidemia Take 1 tablet (40 mg total) by mouth daily. 90 tablet 11/14/2022 Active amLODIPine (NORVASC) 10 MG tabletIndications:Ess ential hypertension Take 1 tablet by mouth once daily 90 tablet 11/30/2022 Active DULoxetine (CYMBALTA) 60 MG capsuleIndications:Cu rrent moderate episode of major depressive disorder, unspecified whether recurrent (HCC) Take 2 capsules (120 mg total) by mouth daily. Take with 30mg tab daily 180 capsule 03/15/2023 Active gabapentin (NEURONTIN) 300 MG capsuleIndications:Cu rrent moderate episode of major depressive disorder, unspecified whether recurrent (HCC) Take 2 capsules (600 mg total) by mouth nightly. 180 capsule 03/15/2023 Active QUEtiapine (SEROquel) 50 MG tabletIndications:Cur rent moderate episode of major depressive disorder, unspecified whether recurrent (HCC) Take 1-3 tabs at night for sleep 270 tablet 03/15/2023 Active Active Problems Problem Noted Date Diagnosed Date PTSD (post-traumatic stress disorder) 02/16/2022 Assessment & Plan (11/21/2022 2:12 PM EDT): Improving Continue Cymbalta 120mg Assessment & Plan (10/12/2022 4:54 PM EDT): No nightmare reported with some anxiety Increase Cymbalta 120mg Assessment & Plan (08/01/2022 6:11 PM EDT): Continued nightmares with anxiety He reports Prazosin made his heart race so he stopped, He reports poor sleep intitiation and some nights not sleeping at all Increase Cymbalta to 90mg Start 25-50mg of Seroquel Assessment & Plan (02/16/2022 3:55 PM EST): Reports that he is still struggling with the loss of his ex and sometimes still wants to call her. He reports having a lot of flashbacks about her and is having a lot of consistent nightmares. He reports fluctuating anxiety and that he had 1 panic attack with increased heart rate while driving at 1 point. -Start 1 to 2 mg of prazosin at night Current moderate episode of major depressive dis order 10/11/2021 Assessment & Plan (11/21/2022 2:24 PM EDT): Improving , reports improved mood Denies any SI Sleep is improved Continue Cymbalta 120mg Assessment & Plan (10/12/2022 4:54 PM EDT): Reports depression is lessening. Denies any SI. Sleep continues to be poor Increase Cymbalta 120mg Increase Gabapentin to 600mg he tried a higher dose and felt it helped him some Increase Seroquel to 100-150mg He felt some effect with the seroquel Assessment & Plan (08/01/2022 6:10 PM EDT): Continues to have some depression however improving. Denies any SI Report poor sleep initiation and maintenance Increase Cymbalta to 90mg Restart Gabapentin 400 Assessment & Plan (02/16/2022 3:55 PM EST): Used to report having increased depression with low energy and low motivation. He reports that his sleep for the most part has been restorative he does report off and on anxiety that is not very consistent. He denies any SI nor HI. He is complaining of muscle twitching and has been off and on with the Prozac. Does report persistent feelings of sadness and feelings of hopelessness especially related to the fact that he is single and he has not had any opportunity to really find a new partner and states that there is some stress from his culture and his family about being single. -To titrate off of Prozac then stop and start Cymbalta Nausea and vomiting 02/16/2021 Bilateral sciatica 01/27/2021 Assessment & Plan (01/27/2021 10:25 AM EST): C/o of numbness in bilateral thighs Suspect sciatica Reports following up with [facility] and has had imaging done including MRI of spine. Has an appointment tomorrow. Has not previously tried physical therapy- Will refer to physical therapy and obtain prior imaging records. Liver disease 01/27/2021 Assessment & Plan (04/27/2021 4:15 PM EST): Has not completed labs ordered by GI Recommended to follow up Abnormal liver function test 12/09/2020 Assessment & Plan (01/27/2021 10:20 AM EST): - ALT 48, Alk phos 142, AST 21 - Abdominal ultrasound ordered to evaluate for gallbladder disease given elevated alk phos. Findings suggest heterogeneous echogenic liver represent liver parenchyma disease may be related to fatty infiltration or cirrhosis - Pt is low risk for liver cirrhosis given normal platelet count, normal albumin function, normal bilirubin. - Fib 4 score 0.32 points- advanced fibrosis excluded - NAFLD fibrosis score- (-1.12) - indeterminate- Will refer to hepatology for further evaluation/possible fibroscan. - Counseled against alcohol use at length today. continue naltrexone. - Counseled on weight loss, healthy diet and exercise - Monitor Assessment & Plan (12/09/2020 12:08 PM EDT): - ALT 48, Alk phos 142, AST 21 - Abdominal ultrasound ordered to evaluate for gallbladder disease given elevated alk phos - Findings suggest heterogeneous echogenic liver represent liver parenchyma disease may be related to fatty infiltration or cirrhosis - Pt is low risk for liver cirrhosis given normal platelet count, normal albumin function, normal bilirubin. - Fib 4 score 0.32 points- advanced fibrosis excluded - NAFLD fibrosis score- (-1.12) - indeterminate- Will refer to hepatology for further evaluation/possible fibroscan. - Counseled against alcohol use at length today. - Counseled on weight loss, healthy diet and exercise - Monitor. Palpitations 11/05/2020 Assessment & Plan (01/27/2021 10:22 AM EST): Heart rate normal today 12 lead EKG done previously which showed sinus tachycardia Given his cardiac risk factors- htn, hld, smoking, alcohol use, obesity- will refer to cardiology for further w/u Will re-check TSH w labs It's possible that this may also be anxiety driven though will rule out cardiac etiology Assessment & Plan (11/05/2020 3:52 PM EDT): Heart rate 104 today 12 lead EKG done previously which showed sinus tachycardia Given his cardiac risk factors- htn, hld, smoking, alcohol use, obesity- will refer to cardiology for further w/u Will re-check TSH w labs It's possible that this may also be anxiety driven though will rule out cardiac etiology Acid reflux 10/06/2020 Assessment & Plan (01/27/2021 10:19 AM EST): Improved after starting PPI Continue seeing GI as scheduled. Assessment & Plan (12/09/2020 12:00 PM EDT): Vomiting improved after starting PPI Counseled against alcohol use at length today Follow up in GI as scheduled. Assessment & Plan (11/05/2020 3:51 PM EDT): Possible reflux induced vs anxiety Will trial PPI. Advised to do H.pylori testing prior to starting PPI Check CMP, Amylase, lipase with labs Counseled alcohol cessation. Pt will be seeing GI in 2 weeks Alcohol abuse, daily use 09/28/2020 Assessment & Plan (11/21/2022 5:20 PM EDT): He is back to drinking on the weekends 2-4 drinks and reports some palpitations when he drinks of his medications Patient aware of risk of drinking with alcohol Assessment & Plan (10/12/2022 4:52 PM EDT): He stopped drinking for last two weeks and doing well Assessment & Plan (08/01/2022 6:12 PM EDT): He reports he is drinking less ; every other day 3-4 days May consider ACamprosate Assessment & Plan (02/16/2022 3:53 PM EST): He reports that he is drinking significantly less. He reports he is drinking 2 to 3 days a week 3-4 alcoholic beverages at a time. -She was counseled on risk of increased use and has been in and out of therapy but not very consistent in the past. -Discontinue naltrexone as he reports that naltrexone has been giving him headaches and he takes it 3-4 times a week. Assessment & Plan (04/27/2021 4:15 PM EST): Counseled cessation Assessment & Plan (01/27/2021 10:21 AM EST): Counseled against alcohol use given liver disease at length Continue naltrexone Mixed hyperlipidemia 09/15/2020 Assessment & Plan (09/15/2020 4:07 PM EDT): - Reviewed lipid panel w patient - pt reports previously taking a statin- will start Atorva 40mg at bedtime - encouraged low fat/low chol diet and regular exercise - advised smoking cessation and limit alcohol intake Anxiety 09/15/2020 Assessment & Plan (09/15/2020 4:08 PM EDT): - 2/2 recent unexpected breakup with gf - start hydroxyzine 25mg at bedtime for anxiety/sleep Essential hypertension 09/15/2020 Assessment & Plan (04/27/2021 4:16 PM EST): Counseled on monitoring bp at home Counseled low sodium diet and increased physical activity Continue current meds Assessment & Plan (01/27/2021 10:19 AM EST): Bp stable and improved since last visit Continue CCB Monitor Assessment & Plan (10/06/2020 1:47 PM EDT): - BP last visit 158/92- started on amlodipine approx 3 weeks ago. BP today 142/82 - Will increase amlodipine to 10mg every day to maintain goal bp of <130/80 - discussed low sodium diet and weight loss - F/u in 3 months Assessment & Plan (09/15/2020 4:06 PM EDT): - Hypertensive last few visit - 12 lead EKG done- sinus tachycardia. No acute ST changes or LVH - Will start on amlodipine 5mg- up titrate in 2 weeks if needed - Bp goal <130/80 Depressive disorder 09/15/2020 Assessment & Plan (04/27/2021 4:15 PM EST): Well controlled Continue f/u with psychiatry Assessment & Plan (11/05/2020 3:53 PM EDT): - Continue sertraline 100mg every day - No SI/HI - F/u with and psychiatry for further management Assessment & Plan (09/15/2020 4:08 PM EDT): - pt reports depression is getting worse. No SI/HI - will increase Sertraline to 50mg- will uptitrate as needed - cont behavioral health therapy - f/u in 2 weeks - psych referral given Resolved Problems Problem Noted Date Diagnosed Date Resolved Date Adjustment disorder with mix ed anxiety and depressed mood 10/11/2021 11/21/2022 Immunizations Name Administration Dates Next Due Covid-19 MRNA Vaccine - Pfizer 12+ (Purple Cap) 07/30/2020,07/06/2020 Tdap 09/15/2020 Family History Medical History Relation Name Comments Hypertension Mother Hypertension Sister Relation Name Status Comments Mother Sister Social History Tobacco Use Types Packs/Day Years Used Date Smoking Tobacco: Every Day Smokeless Tobacco: Never Tobacco Cessation:Ready to Q uit: No; Counseling Given: No Alcohol Use Standard Drinks/Week Comments Yes 9 (1 standard drink = 0.6 oz pur e alcohol) social PHQ-2 Answer Date Recorded PHQ-2 Total Score 6 12/08/2020 Sex and Gender Information Value Date Recorded Sex Assigned at Male 03/24/2023 9:29 PM EST Gender Identity Male 08/18/2020 2:53 PM EDT Sexual Orientation Heterosexual (straight) 08/18 2:53 PM EDT Last Filed Vital Signs Vital Sign Reading Time Taken Comments Blood Pressure 132/76 12/05/2021 3:12 PM EDT Pulse 80 12/05/2021 3:12 PM EDT Temperature 36.9 ??C (98.4 ??F) 12/05/2021 3:12 PM ED T Respiratory Rate 20 01/13/2021 10:47 AM EST Oxygen Saturation 99% 12/05/2021 3:12 PM EDT Inhaled Oxygen Concentration - - Weight 105 kg (232 lb) 12/05/2021 3:12 PM EDT Height 172.7 cm (5' 8 ) 12/08/2020 3:07 PM EDT Body Mass Index 35.28 12/08/2020 3:07 PM EDT Plan of Treatment Health Maintenance Due Date Last Done Comments Hepatitis B Vaccines (1 of 3 - 19+ 3-dose series) 06/13/2002 Pneumococcal Vaccine: Pediatric (0-5 Years) and At-Risk Patients (6 to 49 Years) (1 of 2 - PCV) 06/13/2002 Influenza Vaccine 09/27/2023 01/11/2019 COVID-19 Vaccine (4 - 2023-2 5 season) 2023 07/30/2020, 07/06/2020, 06/06/2020 DTaP/Tdap/Td Vaccines (2 - T d or Tdap) 09/15/2030 09/15/2020 HIV Screening Completed 09/13/2020 Hepatitis C Virus Screening Completed 10/27, 09/13/2020 HPV Vaccines Aged Out No longer eligi ble based on patient's age to complete this topic Goals Goal Patient Goal Type Associated Problems [...] Care Plan GT-Depression No Rosaura Parikh LMFT Procedures Procedure Name Priority Date/Time Associated Diagnosis Comments HEPATITIS PANEL, ACUTE Routine 11/05/2020 3:46 PM EDT Intractable vomiting with nausea, unspecified vomiting type HIV 1/2 AG/AB CMIA REFLEX TO CONFIRMATION Routine 09/13/2020 2:01 PM EDT Encounter for screening and preventative care from Last 3 Months or Most Recently Relevant to Health Maintenance Results * Hepatitis Panel, Acute (11/05/2020 3:46 PM EDT) Hepatitis A Antibody IgM NON-REACT JEREMIE NON-REACT JEREMIENewsiT Comment: For additional information, please refer to http://[employer]/faq/PQJ172 (This link is being provided for informational/ educational purposes only.) Hepatitis B Surface Ag Screen NON-REACT JEREMIE NON-REACT JEREMIENewsiT Hepatitis B Core Antibody IgM NON-REACT JEREMIE NON-REACT JEREMIENewsiT Hepatitis C Antibody NON-REACT JEREMIE NON-REACT JEREMIE [employer] Hepatitis C Antibody (s/co) 0.01 <1.00 [employer] Comment: HCV antibody was non-reactive. There is no laboratory evidence of HCV infection. In most cases, no further action is required. However, if recent HCV exposure is suspected, a test for HCV RNA (test code 16898) is suggested. For additional information please refer to http://[employer]/faq/LBL57u5 (This link is being provided for informational/ educational purposes only.) Blood specimen (specimen) Blood specimen / Unknown 11/05/2020 3:46 PM EDT 11/05/2020 3:47 PM EDT Narrative [facility]ST - 11/07/2020 5:29 AM EDT FASTING:YES FASTING: YES Theo Rowley TOWBOAT ENGINEER LAB BLOOD ORDERABLES Performing Organization Address [facility] Co de Phone Number [employer] [address] [place] [address], [facility] [place] [address] * HIV 1/2 Ag/Ab CMIA Reflex to Confirmation (09/13/2020 2:01 PM EDT) HIV Ag/Ab, 4th Gen NON-REACT JEREMIE NON-REACT JEREMIE [employer] Comment: HIV-1 antigen and HIV-1/HIV-2 antibodies were not detected. There is no laboratory evidence of HIV infection. PLEASE NOTE: This information has been disclosed to you from records whose confidentiality may be protected by state law. ??If your state requires such protection, then the state law prohibits you from making any further disclosure of the information without the specific written consent of the person to whom it pertains, or as otherwise permitted by law. A general authorization for the release of medical or other information is NOT sufficient for this purpose. ?? For additional information please refer to http://[employer]/faq/ZWQ945 (This link is being provided for informational/ educational purposes only.) The performance of this assay has not been clinically validated in patients less than 2 years old. Blood specimen (specimen) 09/13/2020 2:01 PM EDT 09/13/2020 2:01 PM EDT Narrative [facility]ST - 09/14/2020 10:45 AM EDT FASTING:YES AN UPDATE OR CORRECTION HAS BEEN MADE TO NAME FASTING: YES Theo Rowley TOWBOAT ENGINEER LAB BLOOD ORDERABLES Performing Organization Address [facility] Co de Phone Number [employer] [address] [place] [address], [facility] [place] [address] from Last 3 Months or Most Recently Relevant to Health Maintenance Additional Health Concerns Active Problems Noted Date Diagnosed Date FARM-Chemical Dependence - Relapse Prevention GT-Depression 10/11/2021 Care Teams Forming Acid Dumper Relationship Specialty Start Date End Date Pcp, No PCP - General General Medicine 09/28/22 Tigist Broussard LMFT Public Welfare Worker Clinical Social Work 09/28/20 Saúl Ricks MD [address] [place] [address] Psychiatry, General 09/29/20 Analia Swenson LPC [address] [place] [address] Public Welfare Worker Clinical Social Work 10/05/20 Therese Delaney APRN [address] [place] [address] Nurse Practitioner Psychiatry, General 11/17/20 Saúl Bower MD [address] [place] [address] Psychiatry, General 02/03/21 Rocky Randall MD [address] [place] [address] Machine Rigger Gastroenterology 02/14/21 Linda Kumar, RN [address] [place] [address] Registered Nurse 07/06/21 Rosaura Parikh LMFT [address] [place] [address] Primary Clinician Social Work 10/12/21 Manoj Ash APRN [address] [place] [address] Nurse Practitioner Psychiatry, General 01/16/22 Alexander Wright MD [address] [place] [address] Physician Psychiatry, General 10/18/22
--- OUTSIDE RECORDS SUMMARY | 2024-06-07 16:36 | XMS_ITS | Encounter Summary ---
Author Organization [facility] Address [address] [place] [address] Care Team Providers Care Cemetery Manager Name Role Phone Theo Rowley APRN Primary Care Provider Tigist Broussard BOTTLED BEVERAGE INSPECTOR Unavailable Saúl Ricks MD Unavailable [phone] Analia Swenson LPC Unavailable [phone] Therese Delaney APRN Unavailable [phone] Rosaura Parikh BOTTLED BEVERAGE INSPECTOR Unavailable Enriqueta Clark DO Unavailable [phone] Saúl Bower MD Unavailable Rocky Randall MD Unavailable Linda Kumar RN Unavailable [phone] Rosaura Parikh BOTTLED BEVERAGE INSPECTOR Unavailable Manoj Ash APRN Unavailable [phone] Pcp, No Primary Care Provider UnavailAlexander Mercado MD Unavailable Reason for Visit * Reason Onset Date Comments Medication Refill 06/08/2021 Encounter Details Date Type Department Care Team (Late st Contact Info) Description 06/08/[address] [phone] Theo Rowley APRN [address] [place] [address] Mixed hyperlipidemia; Essential hypertension Social History Tobacco [...] hypertension documented in this encounter Care Teams Cemetery Manager Relationship Specialty Start Date End Date Theo Rowley APRN PCP - General Family Medicine 08/12/20 09/27/22 Enriqueta Clark DO [address] [place] [address] PCP - [employer] Attributed 09/26/20 06/25/22 Pcp, No PCP - General General Medicine 09/28/22 Tigist Broussard LMFT Dairy Technologist Clinical Social Work 09/28/20 Saúl Ricks MD [address] [place], [place] [address] Psychiatry, General 09/29/20 Analia Swenson LPC [address] [place] [address] Dairy Technologist Clinical Social Work 10/05/20 Therese Delaney APRN [address] [place] [address] Nurse Practitioner Psychiatry, General 11/17/20 Rosaura Parikh LMFT [address] [place] [address] Clinician Social Work 12/13/20 10/11/21 Saúl Bower MD [address] [place] [address] Psychiatry, General 02/03/21 Rocky Randall MD [address] [place] [id number] Hoop Bender Tank Gastroenterology 02/14/21 Linda Kumar, RN [address] [place] [address] Registered Nurse 07/06/21 Rosaura Parikh LMFT [address] [place] [address] Primary Clinician Social Work 10/12/21 Manoj Ash, CUTTING MACHINE OPERATOR [address] [place] [address] Nurse Practitioner Psychiatry, General 01/16/22 Alexander Wright MD [address] [place] [address] Physician Psychiatry, General 10/18/22 documented as of this encounter
--- OUTSIDE RECORDS SUMMARY | 2024-06-07 16:36 | XMS_ITS | Encounter Summary ---
Author Organization [facility] Address [address] [place] [address] Care Team Providers Care Embedded Case Manager Name Role Phone Amrik Jessicakulwinder FOOD SANITARIAN Primary Care Provider Tigist Broussard COMPUTER AIDED DESIGN DRAFTER Unavailable Salú Ricks MD Unavailable [phone] Analia Swenson SHAKER FLATWORK Unavailable [phone] Therese Delaney FOOD SANITARIAN Unavailable [phone] Saúl Bower MD Unavailable Rocky Randall MD Unavailable Linda Kumar RN Unavailable Rosaura Parikh COMPUTER AIDED DESIGN DRAFTER Unavailable Manoj Ash FOOD SANITARIAN Unavailable Pcp, No Primary Care Provider UnavailAlexander Mercado MD Unavailable [phone] Encounter Details Date Type Department Care Team (Late st Contact Info) Description 09/04/2022 Scanned [address] [address] Primary Care, Scan Social History Tobacco Use [...] Diagnoses Not on filedocumented in this encounter Additional Health Concerns Active Problems Noted Date Diagnosed Date FARM-Chemical Dependence - Relapse Prevention GT-Depression 10/11/2021 documented as of this encounter Care Teams Embedded Case Manager Relationship Specialty Start Date End Date Jessica RowleykulwinderYOSI PCP - General Family Medicine 08/12/20 09/27/22 Pcp, No PCP - General General Medicine 09/28/22 Tigist Broussard LMFT Jetting Machine Operator Clinical Social Work 09/28/20 Saúl Ricks MD [address] [place] [address] Psychiatry, General 09/29/20 Analia Swenson LPC [address] [place] [address] Jetting Machine Operator Clinical Social Work 10/05/20 Therese Delaney APRN [address] [place] [address] Nurse Practitioner Psychiatry, General 11/17/20 Saúl Bower MD [address] [place] [address] Psychiatry, General 02/03/21 Rocky Randall MD [address] [place] [address] System Archive Analyst Gastroenterology 02/14/21 Linda Kumar, RN [address] [place] [address] Registered Nurse 07/06/21 Rosaura Parikh LMFT [address] [place] [address] Primary Clinician Social Work 10/12/21 Manoj Ash APRN [address] [place] [address] Nurse Practitioner Psychiatry, General 01/16/22 Alexander Wright MD [address] [place] [address] Physician Psychiatry, General 10/18/22 documented as of this encounter
[2024-06-07 16:54] VITALS: BP 212/109; PULSE 85; RESP 16; TEMP 37.2
== END 2024-06-07 17:07 | disposition home or self-care (01) ==
PROVIDERS: Registered Nurse Emergency; Emergency Provider Emergency Medicine
DX: K08.89 Other specified disorders of teeth and supporting structures (principal); I10 Essential (primary) hypertension; Z79.899 Other long term (current) drug therapy
CPT/HCPCS: 36415; 80053; 84484; 85025; 93005; 99283; 99284

== ENCOUNTER → 2024-06-07 15:06 | Outpatient (BNV) | payer OTHER, SELFPAY | PROVIDERS: Emergency Provider Emergency Medicine; Visit Provider Internal Medicine Cardiovascular Disease | DX: I10 Essential (primary) hypertension (principal) | CPT/HCPCS: 93010 ==

== ENCOUNTER 2025-01-19 13:00 | Outpatient (AMB) | payer OTHER, SELFPAY ==
--- OUTSIDE RECORDS SUMMARY | 2018-08-15 09:00 | XMS_ITS | Continuity of Care Document ---
Author Organization [facility] Address [address] [place] [address] Phone Care Team Providers Care Bread Jockey Name Role Phone Paris Calix OD Unavailable Unavailable Allergies, Adverse Reactions, Alerts Substance Reaction Status Criticality No Known Allergies Active No Inform ation Medications Medication Instructions Dosage Effective Dates (start - stop) Status Comments atorvastatin 10 mg tablet take 1 tablet by oral route every day 10 MG - Active gabapentin 100 mg capsule take 3 capsule by oral route every day at bedtime 300 MG - Active Procedures Procedure Date Dispensed Refraction New Patient Comprehensive Advance Directives Directive Yes / No Effective Date File Name No Information Encounters Encounter Description Practice Location Reason(s) For Visit Diagnoses Date Provider Providers Copied on Encounter [facility], [address] [place], [place] [address] [place] [address], [address], [place] tel:[phone] [place] blurry vision (chief complaint) watering (chief complaint) Myopia of both eyes with astigmatismEncount er for routine adult medical exam with abnormal findingsKeratoconj unctivitis sicca of both eyes due to decreased tear production [address] [place]. [facility] [place], [place], [id number] , [place]. tel: [phone] Family History Family Member Type Diagnosis Age At Onset Problem (finding) Family history of Arthr itis Problem (finding) Family history of strok e Payers Payer name Insurance type Covered constitution party ID Authoriza tion(s) Cigna CI [id number] Social History Type Description Quantity Date Captured Comments Alcohol Use Details No Caffeine Use Details No Tobacco Use Status Never smoked tobacco 2018 Smoking Status Never smoker Non-Smoking Tobacco Use Details : No Details Available : No Details Available Sex Male Chief Complaint And Reason For Visit From encounter dated '08/15/2018 14:00'. blurry vision (chief complaint). Description: The 33 Year old male presents for evaluation of blurry vision in the right eye and left eye. It started about 2 year(s) ago while at movie theater. The onset was gradual. It affects distance vision. The symptom is constant. It occurs all the time. The condition is mild. watering (chief complaint). Description: Pt. also c/o of watering at end of day. Worse when tired. He is on the computer all day for work. Reason For Referral Reason For Referral No Information History Of Present Illness Encounter Date Complaint History Of Prese nt Illness blurry vision The 33 Year old male presents for evaluation of blurry vision in the right eye and left eye. It started about 2 year(s) ago while at movie theater. The onset was gradual. It affects distance vision. The symptom is constant. It occurs all the time. The condition is mild. watering Pt. also c/o of watering at end of day. Worse when tired. He is on the computer all day for work. Functional Status Date Functional Assessmen t No Information Instructions Date Instruction Additional Infor mation - New glasses Rx given today. Re lated to Myopia of both eyes with astigmatism - RTC 1 year for annual. Related to Encounter for routine adult medical exam with abnormal findings - Sample AT's given to use as needed.Rec. blinking 20/20/20 and taking breaks. Related to Keratoconjunctivitis sicca of both eyes due to decreased tear production Assessments Type Assessment Date assessment Myopia of both eyes with astigma tism assessment Encounter for routin e adult medical exam with abnormal findings assessment Keratoconjunctivitis sicca of both eyes due to decreased tear production Patient Care Teams Name Effective Dates (start - stop) Status Members No Information
--- NOTE | 2025-01-19 13:04 | A.OFFPC_ITS ---
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 Required: No Accompanied by: Self / Same As Patient Allergies No Known Allergies Allergy (Verified 01/19/25 18:41) Medication List - Last Reconciled 01/19/25 by ELLEN Stephens amlodipine 10 mg PO DAILY atorvastatin (Lipitor) 40 mg PO BEDTIME losartan 50 mg PO DAILY Tobacco use date assessed: 01/19/25 Dental Screening Dental Screen Date: 01/19/25 Did you have a dental visit in the last 12 months?: Yes Did you have a dental problem in the last 6 months where you did not have access to dental care?: No Was dental information given to patient?: Patient has dentist HPI HPI Comments History of Present Illness Details Previous PCP: Jie Landeros Last visit:almost and month ago Last PE: four months ago Specialist: no Past medical history: HTN, hld, anxiety and depression, stopped medication couple years because he was feeling better (life stressors), lumbar spondylosis past surgical history: no Medications: amlodipine 20 mg Family HX: father of stroke, paternal uncle of heart attack, mother side uncle of heart attack, mother and sister have cholesterol issues Problem: The patient is a 39 year old individual presenting for management of chronic conditions and evaluation of new symptoms. The patient has a history of hypertension and is currently taking amlodipine 20 mg daily. About six months ago, the patient had an emergency room visit for severely elevated blood pressure of 245/145 mmHg. Following the ER visit, the patient was on hydrochlorothiazide for one month before being switched back to amlodipine, which was titrated from 5 mg to 10 mg, and now 20 mg over the last four months. The patient monitors blood pressure at home and notes improvement, but it is not yet in the target range. The patient has a history of hyperlipidemia, with a past total cholesterol level around 290 mg/dL and an LDL of 202 mg/dL, for which the patient was taking atorvastatin 40 mg while living in [place]. The previous provider stopped the atorvastatin because recent lab work from three months ago showed an LDL of 130 mg/dL, which the patient is concerned about due to a strong family history of cardiac issues. The patient reports a significant family history of cardiovascular disease, including the father's from a stroke, three paternal uncles and one maternal uncle dying from heart attacks, and the mother and both sisters having hypertension. The patient reports intermittent, achy left-sided chest pain that has been present for a while but has increased in frequency since the hypertensive crisis six months ago. The pain is exertional, characterized as a tightening sensation when moving fast or rushing, and is not associated with shortness of breath. An EKG performed in May was normal, showing no signs of ischemia. The patient has a diagnosis of lumbar spondylosis, which causes low back pain and tingling sensations. The patient was referred for physical therapy but has been unable to follow up due to financial constraints. Additionally, the patient reports episodes of pain and swelling on the inside and top of both feet, which are migratory and severe enough to make walking painful. These episodes were more frequent when the patient's blood pressure was very high. A previous visit to an urgent care resulted in a possible diagnosis of gout due to high uric acid, though the patient reports that another provider disagreed. Recent labs from three months ago showed a slightly elevated alkaline phosphatase at 117 U/L and slightly elevated blood sugar. Health Maintenance - Discussion of cardiovascular disease r isk reduction due to a significant family history of cardiac events and personal history of hypertension and hyperlipidemia. - Review of recent lab results from [place] e months ago, which included a lipid panel showing an LDL of 130 mg/dL, and a CMP showing slightly elevated glucose and an alkaline phosphatase of 117 U/L. - The patient tries to manage health thr ough diet. Social History - Employment: The patient is currently b [employer] jobs, leading to financial concerns that affect the ability to pursue recommended treatments such as physical therapy. - Medication Adherence: The patient take s all medications at night as a habit to ensure consistency and avoid missing doses during busy days. - Diet: The patient reports trying to co ntrol their diet. Results - Labs (from 3 months prior): - LDL cholesterol was 130 mg/dL. - Alkaline phosphatase was 117 U/L. - Glucose was slightly elevated. - Thyroid function tests and CBC were no rmal. - Historical Labs (prior to moving from [place]): - Total cholesterol was ~290 mg/dL. - LDL cholesterol was 202 mg/dL. - Diagnostics (May): - EKG showed no ischemia. [facility] Medical History (Updated 01/20/25 @ 14:45 by ELLEN Stephens) Hypertension Hyperlipidemia Family History (Updated 01/20/25 @ 14:39 by ELLEN Stephens) Father Stroke High cholesterol Mother No problems noted. Sister High cholesterol Paternal Uncle Heart attack Maternal Uncle Heart attack Social History Alcohol intake: current Patient Tobacco Use Status: Current everyday Tobacco user e-Cigarette/Vaping Use: Never Used Current occupational status: unemployed Cognitive needs: No Hearing needs: No Vision needs: No Questionnaire PHQ-9 Over the last 2 weeks, how often have you been bothered by any of the following problems? 1. Little interest or pleasure in doing things: several days 2. Feeling down, depressed, or hopeless: more than half the days 3. Trouble falling or staying asleep, or sleeping too much: nearly every day 4. Feeling tired or having little energy: nearly every day 5. Poor appetite or overeating: several days 6. Feeling bad about yourself - or that you are a failure or have let yourself or your family down: several days 7. Trouble concentrating on things, such as reading the newspaper or watching television: several days 8. Moving or speaking so slowly that other people could have noticed. Or the opposite - being so fidgety or restless that you have been moving around a lot more than usual: several days 9. Thoughts that you would be better off or of hurting yourself in some way: not at all Total score: 13 Depression Screening Interpretation: Positive Depression Screening Done: Yes 35180 - PHQ-9 Billing: Yes Source: Developed by Drs. Evens Galvin, Kristy Boston, Bran Blake and colleagues, with an educational bryan from [employer]. Thrive Questionnaire Date Thrive assessed: 01/19/25 I am a: Patient What is your living situation today?: I have a steady place to live Within the past 12 months, did the food you bought not last and you didn't have the money to get more?: Never true Within the past 12 months, did you worry whether your food would run out before you got money to buy more?: Never true Do you have trouble paying for medicines?: No Do you have trouble getting transportation to medical appointments?: No Do you have trouble paying your heating and electricity bill?: No Do you have trouble taking care of your child, family member or friend?: No Do you have trouble with day-to-day activities such as bathing, preparing meals, shopping, managing finances, etc.?: No Are you currently unemployed and looking for a job?: Yes Are you interested in more education?: Yes Please select the resources that you would like help with: None Currently or been in a relationship where the following occur: No concerns reported THRIVE Score: 0 AUDIT C Alcohol Use Questionnaire (AUDIT-C) 1. How often do you have a drink containing alcohol?: 2-3 times a week 2. How many drinks containing alcohol do you have on a typical day when you are drinking?: 3 or 4 3. How often do you have six or more drinks on one occasion?: Monthly Total Score: 6 ALYSSIA-7 AMB Questionnaire ALYSSIA-7 Date ALYSSIA - 7 assessed: 01/19/25 Feeling nervous, anxious, or on edge: 1 = Several days Not being able to stop or control worryin = Nearly every day Worrying too much about different things: 3 = Nearly every day Trouble relaxin = Nearly every day Being so restless that it is hard to sit still: 1 = Several days Becoming easily annoyed or irritable: 1 = Several days Feeling afraid as if something awful might happen: 1 = Several days Total ALYSSIA-7 score (0-4 normal; 5-9 mild; 10-14 moderate; 15-21 severe): 13 Source: Developed by Drs. Evens Galvin, Kristy Boston, Bran Blake and colleagues, with an educational bryan from [employer]. ALYSSIA-7 Assessment Billing ALYSSIA-7 Assessment Tool: ALYSSIA-7 Assessment 24793 Review of Systems Narrative Review of Systems - Cardiovascular: Reports intermittent, achy, exertional left-sided chest pain with a tightening sensation. - Respiratory: Denies shortness of breath. - Musculoskeletal: Reports low back pain, and intermittent, migratory pain and swelling on the top of both feet. - Neurological: Reports tingling sensation associated with back pain. Const Denies headache(s) Eyes Denies loss of vision ENT Denies vertigo, Denies dizziness, Denies headache(s) and Denies sore throat Card Denies chest pain, Denies leg edema and Denies lightheadedness Resp Denies cough, Denies hemoptysis and Denies wheezing GI Denies abdominal pain, Denies melena, Denies constipation, Denies diarrhea and Denies vomiting Denies dysuria, Denies urinary frequency and Denies urinary urgency Musc Reports back pain, Reports arthralgias (ankle down to feet intermittently), Denies joint swelling, Denies numbness and Denies tingling Skin/Breast Denies lesions and Denies rash Neuro Denies Abnormal speech present, Denies behavioral changes, Denies vertigo, Denies dizziness, Denies headache(s), Denies loss of vision, Denies memory loss, Denies numbness and Denies tingling Psych Denies anxiety, Denies behavioral changes, Denies depression, Denies memory loss and Denies panic attacks Masoud/Lymph Denies easy bleeding and Denies easy bruising Aller/Immun Denies wheezing Physical exam (Primary Care) Vital Signs: Last Vital Signs Pulse 84 01/19/25 13:05 Resp 18 01/19/25 13:05 BP 144/78 H 01/19/25 13:05 Pulse Ox 99 01/19/25 13:05 Oxygen Delivery Method Room Air 01/19/25 13:05 BMI result Body Mass Index 36.7 Tobacco/Smoking Status: Tobacco use Status Tobacco use date assessed 01/19/25 01/19/25 13:18 Patient Tobacco Use Status Current everyday Tobacco 01/19/25 13:47 e-Cigarette/Vaping Use Never Used 01/19/25 13:47 PHQ-9: PHQ-9 Score PHQ-9: Total score 13 01/19/25 18:43 Depression Screening Interpretation: Positive Thrive Assessment: Date of Thrive Assessment Date Thrive assessed 01/19/25 01/19/25 13:18 Currently or been in a relationship where the following occur: No concerns reported Narrative Physical Exam - Vitals: Blood pressure is 164/86 mmHg. - General: The patient is able to speak in full sentences without respiratory distress. - Chest: Palpation over the left chest wall reproduces the patient's reported pain. Const General: healthy appearing, no acute distress, alert and awake Nutritional Appearance: well nourished Orientation/consciousness: oriented to person, oriented to place and oriented to time HENMT Ears: TM's normal bilaterally General nose exam: Normal nasal mucous membranes and turbinates present Eyes Conjunctivae: conjunctivae normal Sclerae: sclerae normal Pupils: Equal, round and reactive pupils present Neck Neck: Yes no lymphadenopathy and Yes no JVD Thyroid: Thyroid normal Carotids: no bruits Resp Effort & Inspection: normal respiratory effort and not tachypneic Auscultation: no crackles, no rales, no rhonchi and no wheezes Cardio Rate: regular rate Rhythm: regular rhythm Heart sounds: no murmurs and normal S1 and S2 GI Palpation (GI): Soft to palpation, nontender, no hepatomegaly and no splenomeg johana Auscultation: normal bowel sounds General: Yes no CVA tenderness Back/Spine/Pelvis Back: no CVA tenderness Thoracic/Lumbar Spine: No lumbar spinal tenderness Skin General skin exam: no rashes or lesions noted and dry skin Neuro General: oriented to person, oriented to place and oriented to time Cranial nerves: Yes Equal, round and reactive pupils present Speech: No Abnormal speech present Gait exam (Neuro): Normal gait present Motor exam (neuro): no tremor noted Extrem Right upper extremity: full ROM Left upper extremity: full ROM Right lower extremity: full ROM; no edema Left lower extremity: full ROM; no edema Psych Mental Status: mental status grossly normal Speech and movement: Normal speech and movement present Affect: normal affect Attitude: cooperative Thought process: Normal thought process present Coding Level of Care Code New Pt Level 4 (03212) Diagnoses Hypertension, unspecified type I10 Hypertension type: unspecified Lumbar spondylitis M46.96 Bilateral foot pain M79.671; M79.672 Atypical chest pain R07.89 Additional Codes PHQ-9 - 91761 - PHQ-9 Billing: Yes ([id number]) ALYSSIA-7 Assessment Billing - ALYSSIA-7 Assessment Tool: ALYSSIA-7 Assessment 20459 ([id number]) Time Spent (min) 38 Assessment & Plan Assessment & Plan (1) Hypertension: Code(s): I10 - Essential (primary) hypertension Category: Medical Qualifiers: Hypertension type: unspecified Qualified Code(s): I10 - Essential (primary) hypertension (2) Lumbar spondylitis: Code(s): M46.96 - Unspecified inflammatory spondylopathy, lumbar region Category: Medical (3) Bilateral foot pain: Code(s): M79.671 - Pain in right foot; M79.672 - Pain in left foot Category: Medical (4) Atypical chest pain: Code(s): R07.89 - Other chest pain Category: Medical Plan Plan Patient was informed and verbally consented to the use of an ambient scribe for clinic note documentation during this visit. 1. Essential Hypertension, Uncontrolled The patient's blood pressure remains elevated at 164/86 mmHg despite being on amlodipine 20 mg daily, which is a high dose that increases the risk of side effects such as heart block. The plan is to add a second agent for better control and reduce the risk of adverse effects. The amlodipine dose will be decreased to 10 mg daily, and losartan 50 mg daily will be started. A follow-up visit is scheduled in four weeks to reassess blood pressure. 2. Hyperlipidemia The patient's LDL of 130 mg/dL is considered elevated, particularly given the extensive family history of cardiovascular disease and a personal history of an LDL over 200 mg/dL. The discontinuation of atorvastatin was inappropriate, and the dosage should have been maintained or increased. The plan is to restart atorvastatin at 40 mg daily. 3. Atypical Chest Pain The patient presents with left-sided chest pain that is reproducible on palpation, suggesting a musculoskeletal etiology such as costochondritis. However, the exertional component, combined with significant cardiovascular risk factors, necessitates ruling out a cardiac cause. A cardiac stress test will be ordered. 4. Bilateral Foot Pain And Swelling The patient describes intermittent, migratory pain and swelling on the top of both feet. The differential diagnosis includes a side effect of amlodipine versus gout. Gout is considered less likely given the pain location on the top of the foot rather than in a joint. Labs will be ordered to check uric acid levels, and an X-ray of the foot will be performed to further evaluate. 5. Lumbar Spondylosis The patient has a known history of lumbar spondylosis, causing back pain and tingling. A prior referral for physical therapy was made, which is still the recommended course of action. The patient was not able to make his appointments due to busy work schedule. Discussion Notes I discussed with the patient my concerns about their undertreated hyperlipidemia and uncontrolled hypertension, especially in the context of their significant family history of cardiovascular disease. I explained that an LDL of 130 is not an adequate goal, and we will restart atorvastatin 40 mg. Regarding the patient's blood pressure, I explained that the amlodipine 20 mg dose is higher than standard protocols recommend and increases the risk for side effects, such as the described foot swelling and potentially heart block. I recommended a dual-therapy approach by decreasing the amlodipine to 10 mg and adding losartan 50 mg for better control and safety. We will follow up in four weeks to assess the response. For the chest pain, I acknowledged that while it is reproducible with palpation, suggesting a musculoskeletal cause like costochondritis, the exertional component is concerning. Therefore, I recommended a cardiac stress test to rule out any underlying cardiac issues, especially given the family history. We also discussed the foot pain, noting it could be a side effect of amlodipine. To be thorough, I will order a uric acid level and an X-ray of the foot to investigate other possibilities, though gout seems less likely based on the location. The patient was agreeable to the plan. Patient Instructions - You will restart your cholesterol medication, atorvastatin, at a dose of 40 mg once a day. - Your blood pressure medication regimen will be changed. You will now take amlodipine 10 mg once a day and start a new medication, losartan 50 mg, once a day. - We have ordered a cardiac stress test to evaluate your chest pain. The hospital will contact you to schedule this. - Please go to the lab for blood work to check your uric acid level and other tests. - An X-ray of your foot has been ordered to investigate the pain and swelling. - Continue to monitor your blood pressure at home. - Please schedule a follow-up appointment in four weeks to check on your blood pressure and review test results. - It is still recommended that you follow up with physical therapy for your low back pain when you are able. Orders: Orders UA CC w/rflx Micro + Cult 01/19/25 E78.5 - Hyperlipidemia, unspecified, I10 - Essential (primary) hypertension, M10.9 - Gout, unspecified, R73.01 - Impaired fasting glucose, Z76.89 - Persons encountering health services in other specified circumstances Hemoglobin A1c 01/19/25 E78.5 - Hyperlipidemia, unspecified, I10 - Essential (primary) hypertension, M10.9 - Gout, unspecified, R73.01 - Impaired fasting glucose, Z76.89 - Persons encountering health services in other specified circumstances CA stress test 01/19/25 R07.9 - Chest pain, unspecified, Z82.49 - Family history of ischemic heart disease and other diseases of the circulatory system Complete Blood Count Auto Diff 01/19/25 E78.5 - Hyperlipidemia, unspecified, I10 - Essential (primary) hypertension, M10.9 - Gout, unspecified, R73.01 - Impaired fasting glucose, Z76.89 - Persons encountering health services in other specified circumstances Comprehensive [place]. Panel Fast 01/19/25 E78.5 - Hyperlipidemia, unspecified, I10 - Essential (primary) hypertension, M10.9 - Gout, unspecified, R73.01 - Impaired fasting glucose, Z76.89 - Persons encountering health services in other specified circumstances Lipid Panel 01/19/25 E78.5 - Hyperlipidemia, unspecified, I10 - Essential (primary) hypertension, M10.9 - Gout, unspecified, R73.01 - Impaired fasting glucose, Z76.89 - Persons encountering health services in other specified circumstances TSH reflex Free T4 01/19/25 E78.5 - Hyperlipidemia, unspecified, I10 - Essential (primary) hypertension, M10.9 - Gout, unspecified, R73.01 - Impaired fasting glucose, Z76.89 - Persons encountering health services in other specified circumstances Vitamin D 25-OH Total 01/19/25 E78.5 - Hyperlipidemia, unspecified, I10 - Essential (primary) hypertension, M10.9 - Gout, unspecified, R73.01 - Impaired fasting glucose, Z76.89 - Persons encountering health services in other specified circumstances Uric Acid 01/19/25 E78.5 - Hyperlipidemia, unspecified, I10 - Essential (primary) hypertension, M10.9 - Gout, unspecified, R73.01 - Impaired fasting glucose, Z76.89 - Persons encountering health services in other specified circumstances ECG 12 lead EKG 01/19/25 R07.9 - Chest pain, unspecified, Z82.49 - Family history of ischemic heart disease and other diseases of the circulatory system Medications: New losartan 50 mg PO DAILY 30 tabs 3RF atorvastatin (Lipitor) 40 mg PO BEDTIME 90 tabs 3RF
[2025-01-19 13:05] VITALS: BP 144/78; PULSE 84; RESP 18; O2SAT 99; BMI 36.7
--- OUTSIDE RECORDS SUMMARY | 2025-01-19 17:32 | XMS_ITS ---
Author Name [facility] Organization Unknown History of Medication Use Medication Directions Dispensed Refills Start Date End Date Stat us amLODIPine (NORVASC) 10 MG tablet Take 1 tablet (10 mg total) by mouth daily. 12/05/2021 03/06/2022 active atorvastatin (LIPITOR) 40 MG tablet Take 1 tablet (40 mg total) by mouth daily. 12/05/2021 03/06/2022 active FLUoxetine (PROzac) 40 MG capsule Take 2 capsules (80 mg total) by mouth daily. 10/18/2021 active gabapentin (NEURONTIN) 300 MG capsule Take 1 capsule (300 mg total) by mouth nightly. 10/18/2021 active naltrexone (REVIA) 50 MG tablet Take 1 tablet (50 mg total) by mouth daily. 10/18/2021 active PANTOprazole (PROTONIX) 20 MG tablet Take 2 tablets (40 mg total) by mouth every morning before breakfast. 10/05/2021 01/08/2022 active No known medications No known medications active Problems Problem Status Onset Date Problem Type Date of Resoluti on Source PTSD (post-traumatic stress disorder) active 2022-02-16 [facility] Bilateral sciatica active 2021-01-27 [facility] Acid reflux active 2020-10-06 ProblemAct [facility] Abnormal liver function test active 2020-12-09 ProblemAct [facility] Nausea and vomiting active 2021-02-16 ProblemAct [facility] Mixed hyperlipidemia active 2020-09-15 ProblemAct [facility] Essential hypertension active 2020-09-15 ProblemAct [facility] Palpitations active 2020-11-05 ProblemAct [facility] Depressive disorder active 2020-09-15 ProblemAct [facility] Current moderate episode of major depressive disorder active 2021-10-11 ProblemAct [facility] Liver disease active 2021-01-27 ProblemAct [facility] Anxiety active 2020-09-15 [facility] Alcohol abuse, daily use active 2020-09-28 ProblemAct [facility] Immunizations Vaccine Date Source Lot Number Status Tdap 09/15/2020 [facility] [id number] completed Covid-19 MRNA Vaccine - Pfiz er 12+ (Purple Cap) 07/30/2020 [facility] completed Covid-19 MRNA Vaccine - Pfiz er 12+ (Purple Cap) 07/06/2020 [facility] completed Encounters Encounter Type Encounter Reason Primary Diagnosis Location Date Ambulatory Gastro-esophagea l reflux disease without esophagitis [facility] 12/05/2021 Ambulatory Liver disease, unspecified [facility] 04/27/2021 Ambulatory Liver disease, unspecified [facility] 02/16/2021 Ambulatory Liver disease, unspecified [facility] 01/26/2021 Ambulatory Radial styloid tenosynovitis (de quervain) [facility] 01/13/2021 Ambulatory Liver disease, unspecified [facility] 12/08/2020 Care Team Organization Name Specialty Phone Email Start Date End Da te [facility] 12/28/2022 024 [facility] NO PCP Primary Care 12/06/2022 12/06/2022 [facility] 11/17/2022 024 [facility] Theo Rowley Primary Care 12/05/2021 [facility] THEO ROWLEY Primary Care 12/08/2020 022
--- OUTSIDE RECORDS SUMMARY | 2025-01-19 17:32 | XMS_ITS | Clinical Summary ---
Author Organization Formerly [facility] Address [address] [place] [address] Care Team Providers Care Transformer Tester Name Role Phone Tigist Broussard Ty DATABASE MANAGEMENT SYSTEM SPECIALIST Unavailable [phone] Saúl Ricks MD Unavailable [phone] Analia Swenson LPC Unavailable Unavailable Therese Delaney APRN Unavailable [phone] Saúl Bower MD Unavailable [phone] Rocky Randall MD Unavailable [phone] Rosaura Jefferson DATABASE MANAGEMENT SYSTEM SPECIALIST Unavailable [phone] Manoj Ash LINEWORKER Unavailable [phone] Pcp, No Primary Care Provider Unavailabl e Alexander Wright MD Unavailable [phone] Allergies No known active allergies Medications * This document contains information received from the source organization and may not represent a complete record from that organization. PANTOprazole (PROTONIX) 20 MG tabletIndications:G astroesophageal reflux disease, unspecified whether esophagitis present Take 2 tablets (40 mg total) by mouth every morning before breakfast. 60 tablet 1 2 Active atorvastatin (LIPITOR) 40 MG tabletIndications:M ixed hyperlipidemia Take 1 tablet (40 mg total) by mouth daily. 90 tablet 3 Active amLODIPine (NORVASC) 10 MG tabletIndications:E ssential hypertension Take 1 tablet by mouth once daily 90 tablet 3 Active DULoxetine (CYMBALTA) 60 MG capsuleIndications: Current moderate episode of major depressive disorder, unspecified whether recurrent (HCC) Take 2 capsules (120 mg total) by mouth daily. Take with 30mg tab daily 180 capsule 4 Active gabapentin (NEURONTIN) 300 MG capsuleIndications: Current moderate episode of major depressive disorder, unspecified whether recurrent (HCC) Take 2 capsules (600 mg total) by mouth nightly. 180 capsule 4 Active QUEtiapine (SEROquel) 50 MG tabletIndications:C urrent moderate episode of major depressive disorder, unspecified whether recurrent (HCC) Take 1-3 tabs at night for sleep 270 tablet 4 Active Active Problems Problem Noted Date Diagnosed [...] thighs Suspect sciatica Reports following up with [facility] and has had imaging done [...] anxiety and depressed mood 10/11/2021 11/21/2022 Immunizations Immunization Administration Dates Next Due Covid-19 MRNA Vaccine [...] Assigned at Male 03/24/2023 9:29 PM EST Legal Sex Male 4:26 PM EDT Gender Identity Male 08/18/2020 2:53 PM EDT Sexual Orientation Heterosexual (straight) 08/18 2:53 PM EDT Last Filed Vital Signs Vital Sign Reading Time Taken Comments Blood Pressure 132/76 12/05/2021 3:12 PM EDT Pulse 80 12/05/2021 3:12 PM EDT Temperature 36.9 C (98.4 F) 12/05/2021 3:12 PM EDT Respiratory Rate 20 01/13/2021 10:47 AM EST [...] of 3 - 19+ 3-dose series) 06/13/2002 COVID-19 Vaccine ( season) 2024 07/30/2020, 07/06/2020, 06/06/2020 DTaP/Tdap/Td Vaccines (2 - Td or Tdap) 09/15/2030 09/15/2020 Influenza Vaccine Discontinued 01/11/2019 HIV Screening Completed 09/13/2020 Hepatitis C Virus Screening Completed 10/27, 09/13/2020 HPV Vaccines (No Doses Required) Completed Pneumococcal Vaccine: Pediatric (0-5 Years) and At-Risk Patients (6 to 49 Years) Aged Out No longer eligible b ased on patient's age to complete this topic Goals Goal Patient Goal Type Associated Problems Recent Progress Patient-Stated? Author Learn refusal skills for use when tempted into addictive behavior. Care Plan FARM-Chemical Dependence - Relapse Prevention No Rosaura Jefferson LMFT [phone] Renew commitment to abstain from the use of mood-altering drugs. Care Plan FARM-Chemical Dependence - Relapse Prevention No Rosaura Jefferson LMFT Patient-Stated Goal: I am here to work on my depression and cut down on my drinking, as much as possible. Care Plan FARM-Chemical Dependence - Relapse Prevention No Rosaura Jefferson LMFT [phone] Take prescribed medications responsibly at times ordered by physician. Care Plan FARM-Chemical Dependence - Relapse Prevention No Rosaura Jefferson LMFT MARS GOAL 6 - Feel accepted as who I am Care Plan FARM-Chemical Dependence - Relapse Prevention No Rosaura Jefferson LMFT Note: Pt. will report at least [...] effective functioning. Care Plan GT-Depression No Rosaura Jefferson LMFT [phone] Renew commitment to abstain from the use of mood-altering drugs. Care Plan GT-Depression No Rosaura Jefferson, DATABASE MANAGEMENT SYSTEM SPECIALIST [phone] Take prescribed medications responsibly at times ordered by physician. Care Plan GT-Depression No Rosaura Jefferson, DATABASE MANAGEMENT SYSTEM SPECIALIST Procedures Procedure Name Priority Date/Time Associated Diagnosis [...] Hepatitis A Antibody IgM NON-REACT JEREMIE NON-REACT [facility] Comment: For additional information, please refer to http://[employer]/faq/RHT290 (This link is being provided for informational/ educational purposes only.) Hepatitis B Surface Ag Screen NON-REACT JEREMIE NON-REACT [facility] Hepatitis B Core Antibody IgM NON-REACT JEREMIE NON-REACT [facility] Hepatitis C Antibody NON-REACT JEREMIE NON-REACT JEREMIE [facility] Hepatitis C Antibody (s/co) 0.01 <1.00 [facility] Comment: HCV antibody was non-reactive. There is no laboratory evidence of HCV infection. In most cases, no further action is required. However, if recent HCV exposure is suspected, a test for HCV RNA (test code 69731) is suggested. For additional information please refer to http://[employer]/faq/TUI28m4 (This link is being provided for informational/ educational purposes only.) Blood specimen (specimen) Blood specimen / Unknown 11/05/2020 3:46 PM EDT 11/05/2020 3:47 PM EDT Narrative [facility] - 11/07/2020 5:29 AM EDT FASTING:YES FASTING: YES Theo Rowley LINEWORKER LAB BLOOD ORDERABLES Final R esult Performing Organization Address [facility] Co de Phone Number [email or web address] [address] [place] [address], [facility] [place] [address] * HIV 1/2 Ag/Ab CMIA Reflex to Confirmation (09/13/2020 2:01 PM EDT) HIV Ag/Ab, 4th Gen NON-REACT JEREMIE NON-REACT JEREMIE [facility] Comment: HIV-1 antigen and HIV-1/HIV-2 antibodies were not detected. There is no laboratory evidence of HIV infection. PLEASE NOTE: This information has been disclosed to you from records whose confidentiality may be protected by state law. If your state requires such protection, then the state law prohibits you from making any further disclosure of the information without the specific written consent of the person to whom it pertains, or as otherwise permitted by law. A general authorization for the release of medical or other information is NOT sufficient for this purpose. For additional information please refer to http://education.[employer]/faq/NZX531 (This link is being provided for informational/ educational purposes only.) The performance of this assay has not been clinically validated in patients less than 2 years old. Blood specimen (specimen) 09/13/2020 2:01 PM EDT 09/13/2020 2:01 PM EDT [facility] - 09/14/2020 10:45 AM EDT FASTING:YES AN UPDATE OR CORRECTION HAS BEEN MADE TO NAME FASTING: YES Jakeazeemkulwinder Johnsonmelita LINEWORKER LAB BLOOD ORDERABLES Final R esult Performing Organization Address [facility] Co de Phone Number [email or web address] [address] [place] [address], [facility] [place] [address] from Last 3 Months or Most Recently Relevant to Health Maintenance Additional Health Concerns Active Problems Noted Date Diagnosed Date FARM-Chemical Dependence - Relapse Prevention GT-Depression 10/11/2021 Care Teams Transformer Tester Relationship Specialty Start Date End Date Pcp, No PCP - General General Medicine 09/28/22 Tigist Broussard LMFT Trolley Car Mechanic Clinical Social Work 09/28/20 Saúl Ricks MD [address] [facility], [place] [address] Psychiatry, General 09/29/20 Analia Swenson LPC [address] [facility], [place] [address] Trolley Car Mechanic Clinical Social Work 10/05/20 Therese Delaney APRN [address] [place] [address] Nurse Practitioner Psychiatry, General 11/17/20 Saúl Bower MD [address] [place] [address], [place] [address] Psychiatry, General 02/03/21 Rocky Randall MD [address] [place] [address] Cereal Supervisor Gastroenterology 02/14/21 Rosaura Jefferson DATABASE MANAGEMENT SYSTEM SPECIALIST [address] [place] [address], [place] [address] Primary Clinician Social Work 10/12/21 Manoj Ash APRN [address] [place] [address], [place] [address] Nurse Practitioner Psychiatry, General 01/16/22 Alexander Wright MD [address] [place] [address] Physician Psychiatry, General 10/18/22
--- OUTSIDE RECORDS SUMMARY | 2025-01-19 17:32 | XMS_ITS | Encounter Summary ---
Author Organization Formerly [facility] Address [address] [place] [address] Care Team Providers Care [place]. Representative Name Role Phone Theo Rowley AIRPLANE CABIN ATTENDANT Primary Care Provider Saúl Gar MD Unavailable [phone] Chase Vences SIDE LASTER TACK Unavailable [phone] Tigist Broussard BUREAU CHIEF Unavailable [phone] Saúl Ricks MD Unavailable [phone] Analia Swenson CLAY TRANSPORTER Unavailable Unavailable Therese Delaney AIRPLANE CABIN ATTENDANT Unavailable [phone] Asia Rahman SIDE LASTER TACK Unavailable [phone] Rosaura Jefferson BUREAU CHIEF Unavailable [phone] Enriqueta Clark DO Unavailable [phone] Saúl Bower MD Unavailable [phone] Rocky Randall MD Unavailable [phone] Linda Kumar RN Unavailable [phone] Rosaura Jefferson BUREAU CHIEF Unavailable [phone] Manoj Ash AIRPLANE CABIN ATTENDANT Unavailable [phone] Pcp, No Primary Care Provider UnavailAlexander Mercado MD Unavailable [phone] Encounter Details Date Type Department Care Team (Late st Contact Info) Description 12/09/2020 Scanned Document [facility] PRIMARY CARE SCAN Primary Care, Scan [...] on filedocumented in this encounter Care Teams [place]. Representative Relationship Specialty Start Date End Date Theo Rowley APRN PCP - General Family Medicine 08/12/20 09/27/22 Enriqueta Clark DO [address] [place] [address] PCP - [employer] Attributed 09/26/20 06/25/22 Pcp, No PCP - General General Medicine 09/28/22 Saúl Gar MD [address] [address] Internal Medicine 08/11/20 05/29/21 Chase Vences LCSW [address] [facility] [address] [address] Inclusion Manager Clinical Social Work 08/18/20 05/31/21 Tigist Broussard LMFT [address] [facility] [address] [address] Inclusion Manager Clinical Social Work 09/28/20 Saúl Ricks MD [address] [place] [address] Psychiatry, General 09/29/20 Analia Swenson LPC [address] [place] [address] Inclusion Manager Clinical Social Work 10/05/20 Therese Delaney APRN [address] [place] [address] Nurse Practitioner Psychiatry, General 11/17/20 Asia Rahman LCSW [address] [place] [address] Inclusion Manager Clinical Social Work 11/26/20 05/31/21 Rosuara Jefferson LMFT [address] [place] [address] Clinician Social Work 12/13/20 10/11/21 Saúl Bower MD [address] [place] [address] Psychiatry, General 02/03/21 Rocky Randall MD [address] [place] [address] Licensed Dispensing Optician Gastroenterology 02/14/21 Linda Kumar, RN [address] [place] [address] Registered Nurse 07/06/21 12/02/24 Rosaura Jefferson LMFT [address] [place], [place] [id number] Primary Clinician Social Work 10/12/21 Manoj Ash APRN [address] [place] [address] Nurse Practitioner Psychiatry, General 01/16/22 Alexander Wright MD [address] [place] [address] Physician Psychiatry, General 10/18/22 documented as of this encounter
--- OUTSIDE RECORDS SUMMARY | 2025-01-19 17:33 | XMS_ITS | Encounter Summary ---
Author Organization [facility] Address [address] [place] [address] Care Team Providers Care Political Science Chair Name Role Phone Amrik Jessicakulwinder YOSI Primary Care Provider Tigist Broussard OPTICAL ASSISTANT Unavailable [phone] Saúl Ricks MD Unavailable [phone] Analia Swenson LPC Unavailable Unavailable Therese Delaney APRN Unavailable Saúl Bower MD Unavailable [phone] Rocky Randall MD Unavailable [phone] Linda Kumar RN Unavailable [phone] Rosaura Jefferson OPTICAL ASSISTANT Unavailable [phone] Manoj Ash MANAGER INSIDE Unavailable [phone] Pcp, No Primary Care Provider UnavailAlexander Mercado MD Unavailable [phone] Encounter Details Date Type Department Care Team (Late st Contact Info) Description 09/04/2022 Scanned Document [address] [address] Primary Care, Scan Social History Tobacco Use [...] Care Plan FARM-Chemical Dependence - Relapse Prevention Rosaura Benitez LMFT Patient-Stated Goal: I am here to work on my depression and cut down on my drinking, as much as possible. Care Plan FARM-Chemical Dependence - Relapse Prevention Rosaura Benitez LMFT [phone] Take prescribed medications responsibly at times ordered by physician. Care Plan FARM-Chemical Dependence - Relapse Prevention No Rosaura Jefferson LMFT MARS GOAL 6 - Feel accepted as who I am Care Plan FARM-Chemical Dependence - Relapse Prevention Rosaura Benitez LMFT Note: Pt. will report at least [...] mood-altering drugs. Care Plan GT-Depression No Rosaura Jefferson LMFT [phone] Take prescribed medications responsibly at times ordered by physician. Care Plan GT-Depression Rosaura Benitez LMFT documented as of this encounter Visit Diagnoses Not on filedocumented in this encounter Additional Health Concerns Active Problems Noted Date Diagnosed Date FARM-Chemical Dependence - Relapse Prevention GT-Depression 10/11/2021 documented as of this encounter Care Teams Political Science Chair Relationship Specialty Start Date End Date Jake RowleyazeemkulwinderYOSI PCP - General Family Medicine 08/12/20 09/27/22 Pcp, No PCP - General General Medicine 09/28/22 Tigist Broussard LMFT Systems Development Consultant Clinical Social Work 09/28/20 Saúl Ricks MD [address] [place] [address] Psychiatry, General 09/29/20 Analia Swenson LPC [address] [place] [address] Systems Development Consultant Clinical Social Work 10/05/20 Therese Delaney APRN [address] [place] [address] Nurse Practitioner Psychiatry, General 11/17/20 Saúl Bower MD [address] [place] [address] Psychiatry, General 02/03/21 Rocky Randall MD [address] [place] [address] Technical Applications Specialist Gastroenterology 02/14/21 Linda Kumar, RN [address] [place] [address] Registered Nurse 07/06/21 12/02/24 Rosaura Jefferson LMFT [address] [place] [address] Primary Clinician Social Work 10/12/21 Manoj Ash APRN [address] [place] [address] Nurse Practitioner Psychiatry, General 01/16/22 Alexander Wright MD [address] [place] [address] Physician Psychiatry, General 10/18/22 documented as of this encounter
--- OUTSIDE RECORDS SUMMARY | 2025-01-19 17:33 | XMS_ITS | Clinical Summary ---
Author Organization [facility] Address [address] [facility] [address] [place] [phone] Phone Care Team Providers Care Medical Coding Specialist Name Role Phone Megan Kline PA-C Primary Care Provider [phone] Allergies No known active allergies Medications amLODIPine (NORVASC) 10 MG tabletIndications :Benign essential hypertension Take 2 tablets (20 mg total) by mouth daily. 60 tablet 2 5 Active amLODIPine (NORVASC) 10 MG tabletIndications :Benign essential hypertension Take 1 tablet (10 mg total) by mouth daily. 30 tablet 2 5 12/25/19 25 Discontinu ed(Reorder ) Active Problems Problem Noted Date Diagnosed Date Attempting to conceive 12/24/2024 Assessment & Plan (12/24/2024 2:19 PM EDT): Patient reports that him and his partner are attempting to conceive and is wondering if there is anything that can help increase his chances of conceiving. Advised that he should quit smoking cigarettes and decrease alcohol consumption as that will greatly increase his chances. Also advised focusing on weight loss and blood pressure management. Discussed well-balanced diet and routine physical activity. Bilateral foot pain 11/20/2024 Assessment & Plan (11/20/2024 3:12 PM EDT): He reports pain on the top of his left foot and occasionally his right foot which he originally thought was due to gout. He does report a history of elevated uric acid levels and was diagnosed with gout by a previous provider. On examination today there is no swelling, erythema, warmth of the foot or right first metatarsal. No evidence of gout flare. Discussed symptomatic treatment in the use of compression stockings. Routine general medical exam ination at a [facility] care facility 10/22/2024 Assessment & Plan (10/22/2024 4:48 PM EDT): Will obtain routine lab work including CMP, lipid panel, thyroid panel as well as one-time HIV screening. Discussed routine dental and eye screening. Benign essential hypertension 10/22/2024 Assessment & Plan (12/24/2024 2:18 PM EDT): Blood pressure is slightly increased on the amlodipine 10 mg daily, although not optimal. Will increase to amlodipine 20 mg daily and follow-up in 4 weeks to reassess. If blood pressure continues to remain elevated at that office visit, should consider adding on an KYLE/ARB for management. Assessment & Plan (11/20/2024 3:12 PM EDT): Blood pressure has improved on amlodipine but not optimal, will increase amlodipine to 10 mg daily. Advised to continue monitoring his blood pressure at home. Will follow-up in 4 weeks to reassess. Assessment & Plan (10/22/2024 4:47 PM EDT): History of hypertension, previously on amlodipine but this was discontinued as he was too young for this medication according to the patient. Recently went to [facility] ER. Due to hypertension and was prescribed hydrochlorothiazide 25 mg daily which she has been taking, although he ran out of the medication and has not been taking it for the past week. Blood pressure is significantly elevated in the office today at 190/108 asymptomatic. He does report better blood pressure control on the amlodipine has noted a increase in gout flare since being on hydrochlorothiazide. At this time, we will discontinue hydrochlorothiazide and reinitiate amlodipine 5 mg daily and follow-up in the office in 4 weeks to reassess. Advised that he should take this medication in the morning and recheck his blood pressure proximately 1 hour after taking the medication and to log these numbers so we can see how his blood pressure at home is. Mixed hyperlipidemia 10/22/2024 Assessment & Plan (11/20/2024 3:12 PM EDT): Previous history of high cholesterol, previously on a statin medication, but recent lab work showing an LDL of 130. Discussed with the patient that there is no indication for him to reinitiate any statin medication at this time but he should focus on lifestyle modifications including a well-balanced diet and routine physical activity. Assessment & Plan (10/22/2024 4:47 PM EDT): Previously on atorvastatin but has not had this medication in a long time. Will obtain a fasting lipid panel to further assess. Lumbar radiculopathy 10/22/2024 Assessment & Plan (10/22/2024 4:48 PM EDT): His symptoms are consistent with lumbar radiculopathy. Will refer to [facility] for further assessment. Also discussed physical therapy, patient would like to hold off at this time. Discussed conservative treatment with Tylenol/ibuprofen for pain management. Loud snoring 10/22/2024 Assessment & Plan (10/22/2024 4:48 PM EDT): He reports possible apneic episodes overnight as reported by his as well as occasional loud snoring. Will refer to [facility] sleep medicine for potential for sleep study. Anxiety and depression 10/22/2024 Assessment & Plan (10/22/2024 4:48 PM EDT): History of anxiety and depression, having tried multiple medications in the past with some improvement of symptoms but with side effects. Advised to seek therapy for long-term management. Discussed local resources as well as using [employer]. Discussed medication management including the possibility of starting Lexapro, we will hold off at this time and trial a course of therapy first. Denies SI/HI. Encounters Date Type Department Care Team Description 12/24/2024 2:00 PM EDT Office Visit [facility] Internal Medicine [address] [facility] [place] [address] Megan Kline PA-C Attempting to conceive (Primary Dx); Benign essential hypertension 11/20/2024 2:20 PM EDT Office Visit [facility] Internal Medicine [address] [place] [address] Megan Kline PA-C Benign essential hypertension (Primary Dx); Bilateral foot pain; Mixed hyperlipidemia 11/17/2024 3:28 PM EDT - 11/17/2024 11:59 PM EDT Hospital Encounter [facility] [address] [place] [address] Megan Kline PA-C Discharge Disposition: Home or Self Care 11/13/2024 Refill [facility] Internal Medicine [address] [place] [address] Megan Kline PA-C Med Change Request 10/22/2024 3:20 PM EDT Office Visit [facility] Internal Medicine [address] [place] [address] Megan Kline PA-C Routine general medical examination at a health care facility (Primary Dx); Screening for human immunodeficiency virus; Benign essential hypertension; Mixed hyperlipidemia; Lumbar radiculopathy; Loud snoring; Anxiety and depression from Last 3 Months Immunizations Immunization Administration Dates Next Due COVID-19 Pfizer Comirnaty Vaccine 12+ 08/08/2024 COVID-19, Unspecified Formulation 07/30/2020,12/2020 Hepatitis B Adult 07/27/2022 Influenza Recombinant Latoya valent Preservative Free IM 12/03/2022 MMR 07/27/2022 Tdap 07/27/2022,09/15/2020 Family History Medical History Relation Comments Heart attack Father Hypertension Father Stroke Father Hypotension Mother Anxiety disorder Sister 1 Hypertension Sister 1 Anxiety disorder Sister 2 Relation Status Comments Father Mother Sister 1 Sister 2 Alive Social History Tobacco Use Types Packs/Day Years Used Date Smoking Tobacco: Every Day Cigarettes 0.3 19.9 Started: 2005 Smokeless Tobacco: Never Tobacco Cessation:Ready to Q uit: Not Asked Comments:2 to 3 cigarettes a day Alcohol Use Standard Drinks/Week Comments Yes 4 (1 standard drink = 0.6 oz pur e alcohol) Weekends Child or Family Care Answer Date Record ed Do you have problems with on e of the following making it difficult for you to work, study, or receive health care? No 10/20/2024 Education Answer Date Recorded Are you interested in help w ith more adult education (for example, completing high school, GED, job training, learning the Chinese language, technical skills, or developing parenting skills)? No 10/20/2024 Are you concerned about learning? Not on file 10/20/2024 No 10/20/2024 Yes 10/20/2024 Food Answer Date Recorded Within the past 6 months we worried whether our food would run out before we got money to buy more. Never True 10/20/2024 Within the past 6 months the food we bought just didn't last and we didn't have enough money to get more. Never True Residential Stability Answer Date Recor ded What is your housing situation today? I have tatiana sing 10/20/2024 How many times have you move d in the past 12 months? Zero (I did not move) 10/20/2024 Paying for Meds Answer Date Recorded Do you have trouble paying for medicines? No 10/20/2024 Paying Utility Bills Answer Date Record ed Do you have trouble paying your heating or elect ricity bill? No 10/20/2024 Transportation Answer Date Recorded Has the lack of transportati on kept you from medical appointments or from getting medications? No 10/20/2024 Unemployment Answer Date Recorded Are you currently unemployed or working on a part-time or temporary basis, and looking for work? Yes 10/20/2024 Digital Access Answer Date Recorded No 10/20/2024 Yes 10/20/2024 Do you have reliable internet access at home? Ye s 10/20/2024 Do you have a device (e.g., phone, tablet, computer) with a working camera? Yes 10/20/2024 Intimate Partner Violence Answer Date R ecorded Denied Basic Needs Not on file 10/20/2024 In the past 12 months have y ou been in a relationship with a person who hurts, threatens, or tries to control you? No 10/20/2024 Worried food would run out Not on file 10/20 In the past 12 months have y ou been in a relationship with a person who hurts, threatens, or tries to control you? No 10/20/2024 Sex and Gender Information Value Date Recorded Sex Assigned at Male 06/23/2024 4:18 PM EDT Legal Sex Male 3:45 PM EDT Gender Identity Male 06/23/2024 4:18 PM EDT Sexual Orientation Straight 06/23/2024 4: 18 PM EDT Last Filed Vital Signs Vital Sign Reading Time Taken Comments Blood Pressure 148/88 12/24/2024 2:14 PM EDT Pulse 88 12/24/2024 2:04 PM EDT Temperature 36.3 C (97.3 F) 12/24/2024 2:04 PM EDT Respiratory Rate 18 12/24/2024 2:04 PM EDT Oxygen Saturation 98% 12/24/2024 2:04 PM EDT Inhaled Oxygen Concentration - - Weight 110 kg (242 lb 9.6 oz) 12/24/2024 2:04 PM EDT Height 172.7 cm (5' 7.99 ) 12/24/2024 2:04 PM ED T Body Mass Index 36.9 12/24/2024 2:04 PM EDT Plan of Treatment Upcoming Encounters Date Type Department Care Team (Late st Contact Info) Description 01/28/2025 2:40 PM EST Office Visit [facility] Internal Medicine [address] [place] [address] Megan Kline PA-C [address] [place] [address] [email or web address] Health Maintenance Due Date Last Done Comments PNEUMOCOCCAL VACCINES (0-49 years) (1 of 2 - PCV) 06/13/2002 INFLUENZA VACCINE (#1) 2024 12/03/2022 COVID-19 VACCINE (2024- season) 2024 08/08/2024, 07/27/2022, 03/21/2021, Additional history exists BLOOD PRESSURE 06/24/2025 12/24/2024 DEPRESSION SCREENING 10/20/2025 10/20/2024, 08/25/20 25 SMOKING Hx and SMOKELESS TOBACCO SCREENING 12/24/2025 12/24/2024 SCREENING FOR DIABETES 11/18/2027 11/17/2024 LIPID PANEL 11/17/2029 11/17/2024, 06/0 02/2022, 07/27/2022, Additional history exists Adult Td,Tdap Booster 07/27/2032 07/27/2022, 021 HEPATITIS C SCREENING Completed 09/13/2020 HIV ONE-TIME SCREENING (18-65 YEARS) Completed 11/17/2024 HEPATITIS A VACCINES Aged Out No long er eligible based on patient's age to complete this topic HIB VACCINES Aged Out No longer eligi ble based on patient's age to complete this topic MENINGOCOCCAL VACCINES (ACWY) Aged Out No longer eligible based on patient's age to complete this topic MENINGOCOCCAL VACCINES (B) Aged Out N o longer eligible based on patient's age to complete this topic Medical Devices Not on file Procedures Procedure Name Priority Date/Time Associated Diagnosis Comments COMPREHENSIVE METABOLIC PANEL (CMP) Routine 11/17/2024 3:32 PM EDT Routine general medical examination at a health care facility LIPID PANEL Routine 11/17/2024 3:32 PM EDT Routine general medical examination at a health care facility Mixed hyperlipidemia TSH WITH REFLEX Routine 11/17/2024 3:32 PM EDT Routine general medical examination at a [facility] care facility HIV-1/2 ANTIGEN/ANTIBODY Routine 11/17/2024 3:32 PM EDT Screening for human immunodeficiency virus from Last 3 Months Results * (ABNORMAL) Comprehensive metabolic panel (11/17/2024 3:32 PM EDT) SODIUM 139 133 - 146 mmol/L [facility] POTASSIUM 4.1 3.3 - 5.1 mmol/L [facility] CHLORIDE 104 96 - 108 mmol/L [facility] CO2 24 21 - 35 mmol/L [facility] BUN 9 6 - 19 mg/dL [facility] CREATININE 0.80 0.5 - 1.5 mg/dL [facility] GLUCOSE 108(H) 70 - 99 mg/dL [facility] ALBUMIN 4.2 3.9 - 4.8 g/dL [facility] TOTAL PROTEIN 7.1 6.5 - 8.0 g/dL [facility] CALCIUM 8.8 8.4 - 10.3 mg/dL [facility] ALKALINE PHOSPHATASE 118(H) 39 - 117 U/L [facility] TOTAL BILIRUBIN 0.4 0.0 - 1.2 mg/dL [facility] AST 19 0 - 37 U/L [facility] ALT 15 0 - 40 U/L [facility] GLOBULIN 2.9 1 - 4.8 g/dL [facility] EGFR 114 >59 mL/min/1.7 3m2 [facility] Comment:Estimated glomerular filtration rate calculated using the CKD-EPI refit equation. ANION GAP 15 10 - 20 mmol/L [facility] Blood 11/17/2024 3:32 PM EDT 11/17/2024 3:38 PM EDT [facility] BLOOD BKR ORDERABLES Fin al Result [address] [id number] * HIV-1/2 antigen/antibody (11/17/2024 3:32 PM EDT) HIV-1/2 Antigen/Antibo dy NON-REACTI VE NON-REACTI VE [facility] Blood 11/17/2024 3:32 PM EDT 11/17/2024 3:38 PM EDT [facility] LAB BLOOD BKR ORDERABLES Fin al Result [address] [id number] * TSH with reflex (11/17/2024 3:32 PM EDT) TSH 1.55 0.27 - 4.20 uIU/mL [facility] Blood 11/17/2024 3:32 PM EDT 11/17/2024 3:38 PM EDT Megan NULL-C LAB BLOOD BKR ORDERABLES Fin al Result Performing Organization Address City/[facility]/ZIP Co de Phone Number [address] [phone] * (ABNORMAL) Lipid panel (11/17/2024 3:32 PM EDT) HDL 68 mg/dL [facility] Comment: Interpretation <40 mg/dL: Low HDL cholesterol (major risk factor for CHD) Greater than or equal to 60 mg/dL: High HDL cholesterol ( negative risk factor for CHD) HDL - cholesterol is affected by a number of factors, e.g. smoking, excerise, hormones, sex and age. CHOLESTEROL 216 0 - 240 mg/dL [facility] TRIGLYCERIDES 88 30 - 160 mg/dL [facility] LDL 130(H) 50 - 129 mg/dL [facility] Comment: LDL levels in terms of risk for coronary heart disease: <100 mg/dL: Optimal 100-129 mg/dL: Near or above optimal 130-159 mg/dL: Borderline high 160-189 mg/dL: High >190 mg/dL: Very High CARDIAC RISK RATIO 3.2(L) 3.4 - 5.0 C [facility] Blood 11/17/2024 3:32 PM EDT 11/17/2024 3:38 PM EDT Megan NULL-Rita LAB BLOOD BKR ORDERABLES Fin al Result [address] [address] from Last 3 Months Insurance [facility] [employer] [facility] Care Teams Medical Coding Specialist Relationship Specialty Start Date End Date Megan Kline PA-C [address] [place] [id number] [email or web address] PCP - General Physician Writer Producer 10/22/24 Additional Source Comments The information contained in this document represents components of the legal health record. It is not the complete legal health record.[facility]
== END 2025-01-19 14:40 | disposition home or self-care (01) ==
DX: I10 Essential (primary) hypertension (principal); M46.96 Unspecified inflammatory spondylopathy, lumbar region; M79.671 Pain in right foot; M79.672 Pain in left foot; R07.89 Other chest pain

== ENCOUNTER → 2025-01-19 13:00 | Outpatient (BNVA) | payer OTHER, SELFPAY | DX: I10 Essential (primary) hypertension (principal); E78.5 Hyperlipidemia, unspecified; M47.816 Spondylosis without myelopathy or radiculopathy, lumbar region; M79.671 Pain in right foot; M79.672 Pain in left foot; R07.89 Other chest pain; Z79.899 Other long term (current) drug therapy | CPT/HCPCS: 96127 ==